=== PATIENT | female | born 1960 | race Caucasian/White ===

== ENCOUNTER 2019-02-19 04:11 | Inpatient (IN) | payer OTHER ==
[2019-02-19] VITALS (29 sets, daily range): BP systolic 116–180; BP diastolic 74–103
[~2019-02-19] VITALS: Ht 165.1 cm; Wt 69.2 kg
--- NOTE | ~2019-02-19 | EKG ---
[place] [address] ELECTROCARDIOGRAM REPORT Name: DARIAN REED Room: [address] ADM IN M.R.#: [id number] Admission: 02/19/19 Attend Phys: Zora Wiley MD Discharge: Date of : 56 Report #: [id number] THIS REPORT FOR: //name// 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
--- NOTE | ~2019-02-19 | OP ---
[address] [address] OPERATIVE REPORT Name: DARIAN REED Room: [address] IN M.R.#: [id number] Admission: 02/19/19 Attend Phys: Zora Wiley MD Discharge: Date of : 56 Report #: [id number] THIS REPORT FOR: //name// CC: [facility] physician/PCP Zora Wiley DATE OF SERVICE: 02/20/2019 PREOPERATIVE DIAGNOSES: Bowel obstruction and non-ST wave elevation myocardial infarction. POSTOPERATIVE DIAGNOSIS: Small-bowel obstruction secondary to internal hernia with closed loop obstruction and non-ST wave elevation myocardial infarction. PROCEDURE: Diagnostic laparoscopy converted to laparotomy with small bowel resection and reanastomosis, release of complete small-bowel obstruction and lysis of adhesions. SURGEON: Kenneth Mcelroy DO. EMERGENCY RESPONSE COORDINATOR: Vahe Henry. ANESTHESIA: General endotracheal. ESTIMATED BLOOD LOSS: Less than 30 mL. COMPLICATIONS: None. INDICATIONS FOR PROCEDURE: This is a 59-year-old female who presented to the Emergency Room with severe upper abdominal pain. Initially CT scan, which was performed was reported by an outside radiologist as a free air with small-bowel obstruction and perforation; however, the overread by our radiologist here at [facility] said that there was no free air. We did repeat a CT scan with oral contrast per the radiologist recommendation, which did show a questionable inflamed area in the right upper quadrant with a loop of bowel going up above the liver, but no free air. Also, at the time of her admission, she had a troponin drawn, which was just slightly elevated. However, her serial troponins continued to increase. On the day of admission, I did discuss with the manager media whether we should take the patient to surgery because I was concerned about her examination findings and CT; however, because of her elevated troponins, we elected to just place an NG tube and hold off on surgery; however, on the second day after admission, she continued to have abdominal pain and again after discussion with manager media, we elected to take the patient to the operating room for a laparoscopy, which via description [place] [address] OPERATIVE REPORT Name: DARIAN REED Room: [address] IN [facility]#: [id number] Admission: 02/19/19 Attend Phys: Zora Wiley MD Discharge: Date of : 56 Report #: [id number] DESCRIPTION OF PROCEDURE: After obtaining proper consents and discussing risks and complications with the patient and her family, she was taken to the operating room and laid on the supine position, administered general endotracheal anesthetic. She was then prepped and draped in the usual sterile fashion. She already had a Anderson catheter, placed for monitoring in the Intensive Care Unit. We then prepped and draped the patient in the usual sterile fashion. Preoperative antibiotics had been given. SCDs were in place. A timeout was performed. We then made a small supraumbilical skin incision with a #11 scalpel blade. This was carried down through the skin and the subcutaneous tissue using electrocautery for hemostasis. Once the fascia was encountered, it was incised along the midline, grasped and elevated with Froy clamps and divided further. The peritoneum was then bluntly opened using a hemostat. We then placed 2-0 Vicryl sutures in a [id number] fashion to secure the Alfreda trocar, which was then inserted and insufflation was begun. Once insufflation was complete, full visual inspection of the anterior abdominal organs was performed. This revealed some very dilated loops of bowel, especially in the upper right abdomen. There did appear to be some adhesions of the bowel above the liver on the right side. Inspection lower in the abdomen revealed still more dilated small bowel, but no signs of any obstruction in that area. Also during inspection, we did identify a loop of small bowel which appeared to be very ischemic, but there was no evidence of perforation. So because of this and we knew we would have to do a small bowel resection, I elected to stop the laparoscopy and convert to a laparotomy. We stopped the insufflation, all air was released. The trocar was removed. I then extended the supraumbilical incision upwards for a length of approximately 7 cm. I carried the incision down through the fascia and peritoneum and once within the peritoneum, I was able to explore the abdomen. We did identify an adhesion, which was going over top of the small bowel and attaching up to the liver, which was causing a complete small-bowel obstruction from a closed loop obstruction. I was able to take down this adhesion using Metzenbaum scissors and immediately upon doing that, I was able to bring the small bowel up into the wound. We then inspected the small bowel and although there was no perforation, it was very obvious that the bowel was ischemic and would not recover. We then ran the entire small bowel, found no other abnormalities. We then inspected the area of concern and this was all in the ileum and went to approximately 10 cm from the ileocecal valve. I then performed a small bowel resection opening an avascular window proximal and distal to the area of ischemia. LINDA-80 was fired across the proximal and distal ends and then we used a LigaSure Impact device to sequentially clamp and divide the mesentery. I then performed reanastomosis by opening an enterotomy on both proximal and distal ends. We then placed a LINDA-80 into the bowel and fired it. A TA 60 was then used to close the enterotomy. I then closed the mesentery using a running 2-0 Vicryl suture. We also placed two crotch sutures using 2-0 Vicryl suture. We were then able to replace the bowel back into the abdominal cavity. We copiously irrigated. I assured that there was some omentum going over top of the small bowel to prevent it from going up over the liver again. I then closed the peritoneum and fascia using a running 0 [place] [address] OPERATIVE REPORT Name: DARIAN REED Room: [address] IN [facility].#: [id number] Admission: 02/19/19 Attend Phys: Zora Wiley MD Discharge: Date of : 56 Report #: [id number] PDS suture going from the top down to the middle of the incision and then from the bottom to the top of the incision, so two separate sutures were used. We then closed the subcutaneous tissue using 3-0 Vicryl suture. The skin was closed using romario. The wound was injected with 0.5% Marcaine without epinephrine. The patient was then awakened in the operating room and transported back to the Intensive Care Unit in stable, but guarded condition. Sponge, needle and instrument counts were all correct at the end of the procedure. By: 1522 [id number] Mcelroy DO /nt
[~2019-02-19 04:11] MED LIST: ABILIFY10 MG PO; ALPRAZOLAM PO; AMBIEN 10 MG TA10 MG PO; BUTALB-APAP-CA1 EACH PO; HTN MED; HYDROCODON-ACE1 EAC7 PO; LISINOPRIL10 MG PO; NAPROXEN 500MG500 MG PO; NORCO 10-325 T1 EACH PO; OXYCODONE HCL30 MG PO; SIMVASTATIN40 MG PO; XANAX1 MG PO
[2019-02-19] MEDS ORDERED: NORCO 10-325 T1 EACH PO (04:20)
[2019-02-19] MEDS ORDERED: SIMVASTATIN40 MG PO (04:21)
[2019-02-19] MEDS ORDERED: OXYCODONE HCL10 MG PO (04:21)
[2019-02-19 04:45] LABS: URINE BILIRUBIN NEGATIVE (Negative); URINE BLOOD NEGATIVE (Negative); URINE CLARITY CLEAR; URINE COLOR YELLOW; URINE GLUCOSE-RANDOM NEGATIVE (Negative); URINE KETONES NEGATIVE (Negative); URINE LEUKOCYTES-REFLEX NEGATIVE (Negative); URINE NITRITE-REFLEX NEGATIVE (Negative); URINE PROTEIN 3+ (Negative); URINE UROBILINOGEN 0.2 E.U./dl (0.2-1.0)
[2019-02-19 04:47] LABS: HEMATOCRIT 44.7 % (37.0-47.0); HEMOGLOBIN 15.3 gm/dL (12.0-15.0); MCHC 34.2 g/dL (28.0-37.0); MCV 93.4 fL (80.0-100.0); MPV 8.4 fl. (7.2-11.1); NUCLEATED RBCS 0 /100WBC; PLATELET COUNT* 324 thou/uL (150-400); RBC 4.79 mil/uL (4.20-5.00); RDW-CV 13.2 % (10.5-14.5); WBC 12.9 thou/uL (4.0-11.0)
[2019-02-19 04:51] LABS: CALCIUM 10.1 mg/dL (8.5-10.1); CREATININE 1.3 mg/dL (0.6-1.3); POTASSIUM 4.1 mmol/L (3.5-5.1)
[2019-02-19 05:03] LABS: ALBUMIN 3.9 g/dL (3.4-5.0); TOTAL BILIRUBIN 0.3 mg/dL (<0.1-1.0); TOTAL PROTEIN 8.2 g/dL (6.4-8.2); TROPONIN-I LEVEL 0.5 ng/mL (<0.06)
[2019-02-19 05:47] LABS: ABSOLUTE LYMPHOCYTES 1.5 thou/uL (0.8-5.3); ABSOLUTE MONOCYTES 0.5 thou/uL (0.0-1.2); ABSOLUTE NEUTROPHILS 10.8 thou/uL (1.6-8.1); ATYPICAL LYMPHS 1 %
[2019-02-19 05:48] LABS: CLUMPED PLTS OCCASIONAL; LARGE PLATELETS RARE; PLATELET ESTIMATE ADEQUATE
[2019-02-19 05:53] LABS: BACTERIA-REFLEX 1-9 Few /HPF (None Seen); CASTS None Seen /LPF (None Seen); SQUAMOUS 0-3 Few /LPF (0-3); URINE RBC None Seen /HPF (0-2); URINE WBC-REFLEX 6-15 Few /HPF (0-5)
[2019-02-19 05:54] LABS: CRYSTALS None Seen /LPF (None Seen)
[2019-02-19 09:30] LABS: AMP/METHAMP Negative (Negative); BARBITURATES POSITIVE (Negative); BENZODIAZEPINES POSITIVE (Negative); COCAINE Negative (Negative); METHADONE Negative (Negative); OPIATES POSITIVE (Negative); PCP Negative (Negative); THC POSITIVE (Negative)
--- NOTE | 2019-02-19 09:30 | NUR ---
DR. ZAMORA CONSULTING WITH THE PATIENT AT THIS TIME.
--- NOTE | 2019-02-19 09:48 | NUR ---
DR. GARAY CONSULTING WITH PATIENT AT THIS TIME
--- NOTE | 2019-02-19 12:18 | CON ---
[address] [address] CONSULTATION Name: DARIAN REED Room: [address] IN .R.#: [id number] Admission: 02/19/19 Attend Phys: Zora Wiley MD Discharge: Date of : 56 Report #: [id number] THIS REPORT FOR: //name// CC: [facility] physician/PCP Zora Wiley DATE OF SERVICE: 02/19/2019 CARDIOLOGY CONSULTATION Patient of Dr. Wiley, seen and dictated by Dr. Martinez on 02/19/2019. HISTORY OF PRESENT ILLNESS: The patient is a 59-year-old female who developed lower abdominal discomfort yesterday afternoon at approximately 3:00 and has continued to have that discomfort since that time. She developed nausea and vomiting with subsequent dry heaves. She denied chest, neck, jaw or arm discomfort or dyspnea. Of note, troponin in the ER was initially 0.5 and subsequently 1.58. EKGs revealed no acute ischemic changes. She does have a number of risk factors for coronary artery disease including hypertension, positive family history of premature coronary artery disease in multiple first-degree relatives, tobacco abuse and hyperlipidemia. SOCIAL HISTORY: She is a significant cigarette smoker. She functions independently. PAST MEDICAL HISTORY: Remarkable for the aforementioned risk factors of prior back surgery, appendectomy, and tubal ligation. FAMILY HISTORY: Remarkable for brother and father having premature coronary artery disease. REVIEW OF SYSTEMS: Remarkable for the aforementioned abdominal discomfort and a history of seizures. PHYSICAL EXAMINATION: GENERAL: Reveals a mildly distressed middle-aged female. VITAL SIGNS: Blood pressure 140/70, pulse rate 74, respirations 18 per minute. NECK: Jugular venous pressure is normal. CHEST: Clear. CARDIAC: Reveals normal first and second heart sounds with a soft systolic murmur without rubs or gallops. ABDOMEN: Mildly tender in the lower abdomen without rebound[place] [address] CONSULTATION Name: DARIAN REED Room: [address]#: [id number] Admission: 02/19/19 Attend Phys: Zora Wiley MD Discharge: Date of : 56 Report #: [id number] present and normal. EXTREMITIES: Without edema with intact peripheral pulses. LABORATORY DATA: Troponins are as noted at 0.5 and 1.58. BUN 21, creatinine 1.3. Hemoglobin 15.3, white blood cells count 12,900 with 224,000 platelets. IMPRESSION: 1. Lower abdominal pain of uncertain etiology. 2. Probable non-ST segment elevation myocardial infarction with sequential increases in troponin Is without localizing electrocardiographic changes. 3. Hypertension. 4. Hyperlipidemia. 5. Positive family history of premature coronary artery disease. 6. Tobacco habituation. RECOMMENDATIONS: 1. Clarification of the etiology for the persistent lower abdominal discomfort. 2. If there is nothing to suggest an acute abdomen, I would consider heparinization and aspirin. 3. We would plan catheterization after resolution of the issue regarding lower abdominal pain. This has been discussed with the patient and family and hospitalist as well as Dr. Corona. Critical care time is 35 minutes from 9:05 to 9:40 on 02/19/2019. <ELECTRONICALLY SIGNED> By: Rishabh Martinez MD, [facility] 02/19/19 1218 0940 [id number] Martinez MD, FACC /nt
[2019-02-19 15:02] LABS: INR 1.1; PROTIME 10.8 Seconds (9.20-11.50)
[2019-02-19 15:32] LABS: APTT 198.4 Seconds (25.0-31.3)
--- NOTE | 2019-02-19 18:00 | NUR ---
PT RECEIVED FROM ER AT 1045, COMPLAINING OF CONSTANT ABDOMINAL PAIN, PAIN MGMT PER EMAR. ADMISSION PROCESS COMPLETED. HEPARIN DRIP STARTED, APTT MONITORED PER PROTOCOL. NG INSERTED BY SURERY AND IN LIS. NO ANY PLANS PROCEDURES YET. 2ND IV INSERTED IN LEFT HAND. FAMILY AT THE BEDSIDE.
--- NOTE | 2019-02-19 18:08 | NUR ---
PATIENT PROGRESSING TOWARDS GOALS. TRANSFERRED TO ICU THIS AFTERNOON FOR HYPOTENSION. NOW ON PRESSORS TO SUPPORT BLOOD PRESSURE.HAD 8500 ML REMOVED FROM ABDOMEN THIS AM VIA PARACENTESIS. HAVE BEEN UNABLE TO NOTIFY THE DPOA FOR PATIENT THAT HE IS NOW IN ICU. WAS FEBRILE EARLIER TODAY. APPETITE GOOD. PT WANTS TO GO HOME!
--- NOTE | 2019-02-19 20:31 | NUR ---
HR SUBSTAINING HIGH 130'S TO LOW 140'S CARIAC MONITOR, DENIES CP, EKG OBTAINED TO VERIFY RAPID RHYTHEM, EKG READING SINUS TACHYCARDIA WITH IRREGULAR RATE, MINIMAL ST DEPRESSION, ANTEROLATERAL LEADS, PROTOLONGED QT INTERVAL, B/P STABLE, ATIVAN GIVEN FOR RELAXATION WITHOUT CHANGE IN HR, SPOKE WITH DR DAVIDSON VIA PHONE, NEW ORDERS RECEIVED FOR METOPROLOL 5MG IVP [id number] SCHEDULED AND CARDIZEM GTT IV TIRATE TO KEEP HR =<100. WILL COMMUNICATE NEW ORDERS WITH PT AND INITATE ORDERED. WILL CONTINUE TO MONITOR.
--- NOTE | 2019-02-19 21:50 | NUR ---
DR ZAMORA HERE TO EVALUATE PT AT BEDSIDE, NEW ORDERS RECEIVED TO CONTINUE METOPROLOL 5MG IVP ORDERED AND TO DC CARDIZEM GTT, CARDIZEM GTT STARTED WHILE DR ZAMORA IN PT ROOM, CARDIZEM GTT IMMEDIALEY STOPPED PER ORDER, DR ZAMORA COMMUNICATED NEW ORDERS WITH PT, WILL CONTINUE TO MONITOR.
[2019-02-20] VITALS (67 sets, daily range): BP systolic 99–133; BP diastolic 53–88
[2019-02-20 02:05] LABS: GLYCOHEMOGLOBIN (HGB A1C) 5.8 % (4.8-5.6)
[2019-02-20 03:42] LABS: ABSOLUTE LYMPHOCYTES 1.3 thou/uL (0.8-5.3); ABSOLUTE MONOCYTES 1.3 thou/uL (0.0-1.2); ABSOLUTE NEUTROPHILS 14.3 thou/uL (1.6-8.1); BASOPHILS 0.1 %; HEMATOCRIT 37.5 % (37.0-47.0); LYMPHOCYTES 7.5 %; MCH 32.2 pg (26.0-34.0); MCHC 34.7 g/dL (28.0-37.0); MONOCYTES 7.7 %; MPV 8.5 fl. (7.2-11.1); NUCLEATED RBCS 0 /100WBC; POLYS 84.7 %; RBC 4.04 mil/uL (4.20-5.00); RDW-CV 13.5 % (10.5-14.5); WBC 16.9 thou/uL (4.0-11.0)
[2019-02-20 03:45] LABS: PLATELET COUNT* 193 thou/uL (150-400)
[2019-02-20 04:32] LABS: ALBUMIN 2.6 g/dL (3.4-5.0); ALKALINE PHOSPHATASE 82 U/L (46-116); ANION GAP 9 mmol/L (7-16); BUN 19 mg/dL (7-18); CALCIUM 8.7 mg/dL (8.5-10.1); CHLORIDE 104 mmol/L (98-107); CHOLESTEROL 149 mg/dL (<200); CO2 24 mmol/L (21-32); GLUCOSE 171 mg/dL (70-99); HDL CHOLESTEROL 69 mg/dL (>40); LDL CHOLESTEROL 73 mg/dL (<100); POTASSIUM 3.6 mmol/L (3.5-5.1); SGOT 25 U/L (15-37); SGPT 32 U/L (30-65); SODIUM 137 mmol/L (136-145); TC:HDL 2.2 Ratio (Not establshd); TOTAL BILIRUBIN 0.5 mg/dL (<0.1-1.0); TRIGLYCERIDE 37 mg/dL (<150); VLDL 7 mg/dL (<40)
[2019-02-20 04:34] LABS: SERUM ASSESSMENT Clear
--- NOTE | 2019-02-20 06:30 | NUR ---
PT PULLING OFF SAO2 PROBE, ATTEMPTING TO GET OOB WTIHOUT ASSIST AND PULLING AT IV LINES, PT STATES SHE WAS UNAWARE OF PLACE, TIME, AND SITUTATION, LIGHT TURNED ON IN ROOM TO ASSIST WITH VISUALIZATION OF PLACE, REORIENTED TO PLACE, TIME, AND SITUATION VERBALLY, PT VERBALIZED UNDERSTANDING BUT APPEARS TO BE LOOKING AROUND ROOM IF CONFUSED, STATES DOESNT UNDERSTAND WHY SHE IS HERE AND WHAT IS GOING ON, EMOTIONAL SUPPORT PROVIDED, DENIES NAUSEA, NG PATENT TO BROWN BILE LIS. BED ALARM ON FOR SAFETY, WILL CONTINUE TO MONITOR AND KEEP SAFE.
--- NOTE | 2019-02-20 07:00 | NUR ---
SLOW PROGRESSION TOWARDS GOALS, REQUESTING PAIN MEDICATION FOR GENRALIZED ABD PAIN WHEN AWAKE, RESTING QUIETLY WITH EYES CLOSED OFF AND ON DURING NOC, TACHYPENIC RESP UP TO LOW 40'S BPM, SAO2 REMAINS =>95% ON 2L PER NC, DENIES SOA OR DIFFICULTY BREATHING, METOPROLOL 5MG IVP HELPFUL FOR HR CONTROL, HR RANING FROM 80'S TO 120'S SR/ST PAC'S, AFEBRILE, DENIES NAUSEA, TOELRATING ICE CHIPS SPARINGLY, REMAINS ON HEPARIN GTT IV, TITRATING PER ORDER, NO S/S ACTIVE BLEEDING NOTED, NEXT APTT SCHEDULED AT 0730 THIS AM, INTERMITTENT FORGETFULNESS AND CONFUSTION, EASILY REDIRECTABLE AND ORIENTED TO PLACE, TIME, AND SITUATION. BED ALARM ON FOR SAFETY. CALL LIGHT IN REACH.
--- NOTE | 2019-02-20 15:32 | NUR ---
PT TO OR AT 1400. VSS.
--- NOTE | 2019-02-20 18:26 | NUR ---
PT RECEIVED FROM OR AT 1520 AFTER SMALL BOWEL RESECTION, VSS. PT CONFUSED WHEN AWAKE, REORIENTATION GIVEN. HEPARIN HOLD TILL NEXT ORDER. NS AT 100 MLS/HR. PAIN MGMT PER EMAR. NPO STATUS. NG CONTD AT LIS. WOUND DSG LOOKS CLEAN, DRY AND INTACT.
[2019-02-21] VITALS (38 sets, daily range): BP systolic 95–140; BP diastolic 56–82
--- NOTE | 2019-02-21 02:02 | NUR ---
PT CONTINUES WITH INTERMITTENT CONFUSION ESPECIALLY TO PLACE, REQUESTED TO CALL AND LEAVE FACILITY, ATTEMPTED TO REORIENT WITHOUT SUCCESS, ASSISTED PT TO CALL SPOUSE, UPDATED SPOUSE PTS CURRENT CONDITON INCLUDING CONFUSION, ATIVAN 1MG IVP GIVEN FOR INCREASED ANXIETY, PTS STATES WILL BE HERE IN AM, ABLE TO CONVINCE PT TO CONTIUE WITH POC, MORPHINE GIVEN FOR C/O ABD PAIN, EDUCATED AND ENCOURAGED SPLINTING ABDOMEN WITH COUGHING AND CARES, ASSITED TO REPOSITON FOR COMFORT AND PROMOTE SKIN INTEGRITY, PT STATES UPSET BECAUSE UNABLE TO BE PROVIDED WITH PO INTAKE, EDUCATED NPO ORDER AND RATIONAL S/P ABD SURGERY TO REMAIN NPO, FREQUENT SWABS PROVIDED, PT STATES SWABS ARE NOT GOOD AND WANTS TO LEAVE BECAUSE "NO ONE WILL GIVE ME ANYTHNG TO DRINK AND IM TIRED OF THIS HOME", EMOTIONAL SUPPORT PROVIDED, ATIVAN APPEARS TO BE HELPFUL AT THIS TIME, REMAINS AWAKE AND CONFUSED, WITH DECREASED ANXIETY/AGITATION, 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 WILL CONTINUE TO MONITOR AND PROVIDE SUPPORT.
[2019-02-21 04:31] LABS: ABSOLUTE MONOCYTES 0.6 thou/uL (0.0-1.2); ABSOLUTE NEUTROPHILS 7.2 thou/uL (1.6-8.1); EOSINOPHILS 0.1 %; HEMATOCRIT 32.1 % (37.0-47.0); HEMOGLOBIN 11.1 gm/dL (12.0-15.0); LYMPHOCYTES 11.5 %; MCH 32.8 pg (26.0-34.0); MCHC 34.7 g/dL (28.0-37.0); MCV 94.5 fL (80.0-100.0); MONOCYTES 7.1 %; MPV 8.7 fl. (7.2-11.1); NUCLEATED RBCS 0 /100WBC; PLATELET COUNT* 167 thou/uL (150-400); POLYS 81.3 %; RDW-CV 13.4 % (10.5-14.5); WBC 8.9 thou/uL (4.0-11.0)
[2019-02-21 04:55] LABS: ALBUMIN 2.1 g/dL (3.4-5.0); CALCIUM 8.1 mg/dL (8.5-10.1); CREATININE 0.8 mg/dL (0.6-1.3); MAGNESIUM 2.1 mg/dL (1.8-2.4); POTASSIUM 3.4 mmol/L (3.5-5.1); TOTAL BILIRUBIN 0.4 mg/dL (<0.1-1.0); TOTAL PROTEIN 5.6 g/dL (6.4-8.2); TROPONIN-I LEVEL 0.27 ng/mL (<0.06)
--- NOTE | 2019-02-21 06:00 | NUR ---
PT SLOW PROGRESSION TOWARDS GOALS, AWAKE MOST OF NOC, INTERMITTENT CONFUSION AND FORGETFULLNESS, STATES "GOING TO A HOSPTITAL TODAY" INQUIRED WHY SHE WAS WANTING TO LEAVE AND SHE SAID BECAUSE "THEY WONT GIVE ME A REAL BED, THERES NO DOCTORS HERE OR ANY MEDICAL ANYTHING JADYN EVER SEEN" ATTEMPTED TO REORIENT TO PLACE WITH MUCH DIFFICULTY, RESTLESS AND AGITATED AT TIMES, ATIVAN 1MG IVP GIVEN PRN WITH SOME EFFECTIVENESS, ATIVAN DECREASED AGIATION BUT DID NOT DECREASE ANXIETY. 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 EDUCATED AND ENCOURAGED USE OF CALL LIGHT, CALL LIGHT REMAINS IN REACH.
--- NOTE | 2019-02-21 06:48 | NUR ---
PT C/O GENEALIZED ABD PAIN 02/09, MORHPHINE 4MG IVP GIVEN WITH MINIMAL EFFECT, AWAKE, CONFUSED, RESTLESS, AND ANXIOUS MOST OF NOC, REQUESTING FURTHER PAIN MEDICATION, UCALL PAGE SENT TO DR MAYORGA, UPDATED ON CONTINUE C/O ABD PAIN, SMALL BOWEL RESECTION ON 02/20/19, OXY IR 20MG PO TID HOME MEDICATION, PT CONTINUED C/O PAIN WITH CONFUSION, ANXIETY, AND RESTLESSNESS, NEW ORDER RECEIVED DILAUDID 2MG IVP [id number] PRN, PT UPDATED NEW ORDER AND FIRST DOSE DILAUDID 2MG IVP GIVEN. SAO2 REMAINS STABLE 98% ON 2L PER NC, ASSISTED POSITON FOR COMFORT, FAN ON PER PT REQUEST, BED ALARM ON FOR SAFETY, CALL LIGHT REMAINS IN REACH.
--- NOTE | 2019-02-21 09:57 | NUR ---
Patient sleepimng this am. Preparing to get out of bed. Incision dry and intact. family at bedside.
--- NOTE | 2019-02-21 10:30 | NUR ---
CHART REVIEWED, SPOKE WITH PT. PT LIVES AT HOME WITH HER , HAS BEEN ACTIVE AND INDEP. DISCUSSED ROLE OF CARE MGT. PT DENIES ANY DISCHARGE NEEDS AT THIS TIME. CASE MGT WILL CONTINUE TO FOLLOW.
--- NOTE | 2019-02-21 12:24 | EKG ---
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[place] : 1960 Requested By: Christopher Díaz Order Number: [id number] Gali MD: Erik Al Measurements Intervals [place] Rate: 87 P: MT: QRS: -9 QRSD: 108 T: 50 QT: 443 QTc: 533 Interpretive Statements sinus rhythm Nonspecific T abnrm, anterolateral leads Prolonged QT interval Artifact in lead(s) I,II,aVL,aVF,V1,V3,V5,V6 Compared to ECG 08/09/2012 17:05:18 Prolonged QT interval now present Electronically Signed On 02-21-2019 12:24:00 CDT by Erik Al [email or web address] <ELECTRONICALLY SIGNED> By: Erik Al MD, FAC 02/21/19 1224 0423 0423 Erik Al MD, FAC /EPI
--- NOTE | 2019-02-21 12:25 | EKG ---
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
--- NOTE | 2019-02-21 12:34 | EKG ---
[place] [address] ELECTROCARDIOGRAM REPORT Name: BRIANNADARIANPedrito HILL Room: [address] ADM IN M.R.#: [id number] Admission: 02/19/19 Attend Phys: Zora Wiley MD Discharge: Date of : 56 Report #: [id number] THIS REPORT FOR: //name// [facility] Test Date: 2019-02-19 Test Time: 19:57:12 Pat Name: DARIAN REED Department: Room: [facility] Gender: F Manager Medical: DONG : 1960 Requested By: Debby Li Order Number: [id number] MD: Erik Al Measurements Intervals [place] Rate: 138 P: -24 [place]: 111 QRS: 18 QRSD: 83 T: 71 QT: 344 QTc: 522 Interpretive Statements Sinus tachycardia with irregular rate Borderline low voltage, extremity leads Minimal ST depression, anterolateral leads Prolonged QT interval Baseline wander in lead(s) V3 Electronically Signed On 02-21-2019 12:34:44 CDT by Erik Al [email or web address] <ELECTRONICALLY SIGNED> By: Erik Al MD, FACC 02/21/19 1234 56 56 Erik Al MD, [facility] /EPI
--- NOTE | 2019-02-21 13:11 | 2DMMODE ---
[place] [address] 2 D/M-MODE ECHOCARDIOGRAM Name: BRIANNADARIANPedrito HILL Room: [address] IN [facility]#: [id number] Admission: 02/19/19 Attend Phys: Zora Wiley, Discharge: Date of : 56 Date of Service: 02/21/19 1311 Report #: [id number] THIS REPORT FOR: //name// APPROVED REPORT Study performed: 02/21/2019 10:52:14 EXAM: Comprehensive 2D, Doppler, and color-flow Echocardiogram Patient Location: In-Patient Room #: [facility] [place] Status: routine BSA: 1.71 HR: 94 bpm BP: 112/73 mmHg Rhythm: NSR Other Information Study Quality: Good Indications Acute ID 2D Dimensions IVSd: 10.00 (7-11mm) LVOT Diam: 18.99 (18-24mm) LVDd: 44.78 mm PWd: 10.41 (7-11mm) Ascending Ao: 24.97 (22-36mm) LVDs: 27.86 (25-40mm) Aortic Root: 27.88 mm Volumes Left Atrial Volume (Systole) LA ESV Index: 30.20 mL/m2 Aortic Valve AoV Peak Christopher.: 1.50 m/s AO Peak Gr.: 8.97 mmHg LVOT Max P.28 mmHg AO Mean Gr.: 4.59 mmHg LVOT Mean P.38 mmHg LVOT Max V: 1.15 m/s AO V2 VTI: 25.40 cm LVOT Mean V: 0.71 m/s LIZETT (VTI): 2.27 cm2 LVOT V1 VTI: 20.40 cm Mitral Valve E/A Ratio: 0.81 MV Decel. Time: 138.82 ms MV E Max Christopher.: 0.91 m/[place] [address] 2 D/M-MODE ECHOCARDIOGRAM Name: DARIAN REED Room: [address] IN .R.#: [id number] Admission: 02/19/19 Attend Phys: Zora Wiley, Discharge: Date of : 56 Date of Service: 02/21/19 1311 Report #: [id number] PHT: 40.26 ms MVA (PHT): 5.46 cm2 TDI E/Lateral E': 7.58 E/Medial E': 7.58 Medial E' Christopher.: 0.12 m/s Lateral E' Christopher.: 0.12 m/s Pulmonary Valve PV Peak Christopher.: 0.89 m/s PV Peak Gr.: 3.14 mmHg Tricuspid Valve RAP Estimate: 5.00 mmHg TR Peak Gr.: 29.10 mmHg RVSP: 34.00 mmHg PA Pressure: 34.00 mmHg Left Ventricle The left ventricle is normal size. There is normal LV segmental wall motion. There is normal left ventricular wall thickness. Left ventricular systolic function is normal. The left ventricular ejection fraction is within the normal range. LVEF is 55-60%. Grade I - abnormal relaxation pattern. Right Ventricle The right ventricle is normal size. The right ventricular systolic function is normal. Atria Left atrium is mildly dilated. The right atrium size is normal. Aortic Valve Mild aortic valve sclerosis. No aortic regurgitation is present. There is no aortic valvular stenosis. Mitral Valve The mitral valve is normal in structure. Mild mitral regurgitation. No evidence of mitral valve stenosis. Tricuspid Valve The tricuspid valve is normal in structure. Mild tricuspid regurgitation. estimated pa pressure 45 mm Hg Pulmonic Valve The pulmonary valve is normal in structure. There is no pulmonic valvular [place] [address] 2 D/M-MODE ECHOCARDIOGRAM Name: DARIAN REED Room: [address] IN [facility]#: [id number] Admission: 02/19/19 Attend Phys: Zora Wiley, Discharge: Date of : 56 Date of Service: 02/21/19 1311 Report #: [id number] Great Vessels The aortic root is normal in size. IVC is not well visualized. Pericardium There is no pericardial effusion. <Conclusion> LVEF is 55-60%. Mild mitral regurgitation. Mild tricuspid regurgitation. estimated pa pressure 45 mm Hg <ELECTRONICALLY SIGNED> By: Erik Al MD, [facility] 02/21/191310 10 10 Erik Al MD, FACC /INF
--- NOTE | 2019-02-21 15:45 | NUR ---
SW provide DPOA/Advanced Directive paperwork and information to pt and pt family member/visitor in room. Pt was not ready to complete at this time but was thankful for the information.
--- NOTE | 2019-02-21 16:00 | NUR ---
PATIENT UP IN CHAIR TOLERATING WELL. NG INTACT BILE COLOR DRAINAGE FROM NG TUBE. INCISION REMAINS INTACT.
--- NOTE | 2019-02-21 17:44 | NUR ---
PATIENT TRANSFERED TO RM 218. APPEARS COMFORTABLE UP IN FOR TRANSFER. REPORT GIVEN TO TERI KRAUS.
[2019-02-22] VITALS (23 sets, daily range): BP systolic 120–151; BP diastolic 68–94
--- NOTE | 2019-02-22 03:34 | NUR ---
PT ALERT ORIENTED. MIDLINE ABD DRSG D/I. NG TO LIS DRAINING BROWN. O2 AT 2 LITERS NC. PT AGITATED AND ANXIOUS. HANDS TREMULOUS. ATIVAN GIVEN TWICE. PT MUCH MORE RELAXED WITH ATIVAN. HYDROMORPHONE GIVEN TWICE FOR ABD PAIN. PT RESTING QUIETLY THROUGH MOST OF THE SHIFT. TELEMETRY SHOWS SR.
[2019-02-22 05:25] LABS: CALCIUM 8.3 mg/dL (8.5-10.1); CREATININE 0.8 mg/dL (0.6-1.3); PHOSPHORUS* 2.2 mg/dL (2.5-4.9); POTASSIUM 3.8 mmol/L (3.5-5.1)
[2019-02-22 05:26] LABS: ABSOLUTE LYMPHOCYTES 0.9 thou/uL (0.8-5.3); ABSOLUTE MONOCYTES 0.7 thou/uL (0.0-1.2); ABSOLUTE NEUTROPHILS 4.8 thou/uL (1.6-8.1); BASOPHILS 0.2 %; EOSINOPHILS 0.1 %; HEMATOCRIT 30.3 % (37.0-47.0); HEMOGLOBIN 10.3 gm/dL (12.0-15.0); LYMPHOCYTES 14.7 %; MCH 32.2 pg (26.0-34.0); MCHC 33.8 g/dL (28.0-37.0); MCV 95.3 fL (80.0-100.0); MONOCYTES 10.1 %; NUCLEATED RBCS 0 /100WBC; PLATELET COUNT* 166 thou/uL (150-400); POLYS 74.9 %; RBC 3.18 mil/uL (4.20-5.00); RDW-CV 13.5 % (10.5-14.5); WBC 6.4 thou/uL (4.0-11.0)
--- NOTE | 2019-02-22 08:16 | NUR ---
Rapid response called, Pt transferring to ICU bed 6
--- NOTE | 2019-02-22 08:45 | NUR ---
RECEIVED PT CARE 0700. SHE IS AWAKE/ALERT, ANXIOUS, AND ORIENTED X4. UNABLE TO OBTAIN O2 SAT >60%. PLACED PATIENT ON NON REBREATHER AND O2 SATS INCREASED INTO 80'S. WELL PULLER HEAD ALARMING SVT. EKG COMPLETED. CARDIOLOGY NOTIFIED. DR TOLEDO AND DR KRAUSE ON THE FLOOR TO SEE THE PATIENT. QUICK COMBO PADS PLACED AND ADENOSINE GIVEN PER DR TOLEDO. HEART RATE REMAINED 160'S. AN ADDITIONAL 5MG IV METOPROLOL GIVEN WITH A SUCCESSFUL DECREASE IN HEART RATE INTO THE 90'S. AMIO BOLUS AND GTT ORDERED PER DR TOLEDO. AMIO BOLUS GIVEN PRIOR TO PATIENT TRANSPORTING TO CT SCAN. AMIO GTT STARTED IN ROUTE PER NURSING HOSPITALITY JOB TITLES. RESPIRATORY ASSISTING WITH TRANSPORT DUE TO PATIENT BEING PLACED ON BIPAP DURING HER DECOMPENSATING EVENT. SURGERY NOTIFIED ABOUT PATIENTS CHANGE IN STATUS. PATIENTS UPDATED AND AWARE OF PATIENTS CHANGE IN STATUS AND TRANSFER TO ICU 6. BLOOD PRESSURE REMAINED STABLE THROUGHOUT THIS EVENT. REPORT CALLED TO QUALITY CONTROL CHEMIST. HOUSE SUP AND NURSING COGENERATION TECHNICIAN ASSISTING IN TRANSPORT TO CT SCAN AND ICU 6. ALL PATIENTS BELONGINGS PACKED AND SENT WITH THE PATIENT. NO QUESTIONS/CONCERNS AT TIME OF TRANSFER.
--- NOTE | 2019-02-22 09:28 | NUR ---
PATIENT TRANSFERED TO ICU BED 6 WITH SALARY AND WAGE ADMINISTRATOR AFTER GOING TO CTA, PENDING CTA RESULTS. CENTRAL LINE INSERTION AT BEDSIDE WITH SURGERY. TOLERATED WELL. AMIODARONE STARTED, PATIENT REMAINS SINUS TACHY AND TACHYPNIC. WILL CONFIRM PLACEMENT WITH CXR, PATIENT REPORTS PAIN, WILL ADDRESS POST CENTRAL LINE CONFIRMATION.
[2019-02-22 12:31] LABS: PCO2 29.7 mmHg (35.0-45.0)
[2019-02-22 12:34] LABS: PO2 154.6 mmHg (75.0-100.0)
--- NOTE | 2019-02-22 15:07 | PATH ---
[address] [address] PATHOLOGY RPT PROCEDURE Name: BRIANNADARIANPedrito HILL Room: [address] IN .R.#: [id number] Admission: 02/19/19 Date of : 56 Discharge: Report #: [id number] Path Case #: [id number] [facility] Accession Number: [id number] . 01 Material submitted: . small bowel - SMALL BOWEL ILEUM . 01 Clinical history: . Bowel obstruction . 02 Diagnosis: Small bowel ileum: - Segment of benign small intestine with mucosal necrosis and transmural acute inflammation and fresh hemorrhage, with viable surgical margins, negative for granulomas, viral inclusions and dysplasia. - Two benign and congested mesenteric lymph nodes. (DEEJAY:cecily; 02/22/2019) QMS/02/22/2019 . 02 Electronically signed: . Milton Rutledge MD, Pathologist NPI- [id number] . 01 Gross description: . The specimen is received in formalin, labeled "Darian Reed, small bowel ileum", is a 30.5 cm unoriented, dilated, hemorrhagic and focally necrotic segment of small bowel with up to 3.0 cm diameter and with abundant amount of predominantly hemorrhagic mesenteric fat measuring up to 3.0 cm. Both the margins are closed by staple line. One margin appears viable (A1) and the opposite possible hemorrhagic and necrotic (A2). The serosa is lara-brown dusky, hemorrhagic and covered with a focal area of possible fibropurulent exudate. The mucosa is hemorrhagic and focally covered by a possible leroy-white exudate that possibly extends to margin submitted in block A2. There is approximately 4.0 cm of bowel mucosa from margin A1 that appears viable. The changes in the wall is transmural that extends to the adjacent mesenteric fat. The wall is up to 0.1 cm in average thickness. No discrete nodules or polyp are identified. Cross section of the mesenteric vessels reveals dark brown possible blood clots. There is no perforation and no discrete lymph nodes are identified. . Representatively submitted as follows: A1. Margin. A2. Opposite margin. A3. Mesenteric margin. A4. Bowel wall to underlying mesentery. A5. Bowel wall. A6. Mesenteric vessels. (SWS; 02/21/2019) [place] [id number] PATHOLOGY RPT PROCEDURE Name: DARIAN REED Room: [address] IN [facility].#: [id number] Admission: 02/19/19 Date of : 56 Discharge: Report #: [id number] Path Case #: [id number] SHS/SHS . 02 Pathologist provided ICD-10: K55.069, K52.9 . 02 CPT . 900178 Specimen Comment: A courtesy copy of this report has been sent to Specimen Comment: [phone], . Specimen Comment: Report sent to / DR MAYORGA Performed at: 01 [facility] [address], [place], [place] [id number] MD Maurice Mckeon MD Phone: [phone] Performed at: [address] [facility] [address] [place] [id number] MD Milton Rutledge MD Phone: [phone]
--- NOTE | 2019-02-22 16:16 | EKG ---
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 : 1960 Requested By: Lex Bush Order Number: [id number] Reading MD: Erik Al Measurements Intervals [place] Rate: 161 P: -1 VT: 81 QRS: -24 QRSD: 84 T: 87 QT: 297 QTc: 486 Interpretive Statements Supraventricular tachycardia Borderline left axis deviation Low voltage, extremity leads ST depression, probably rate related Compared to ECG 02/19/2019 19:57:12 no change Electronically Signed On 02-22-2019 16:15:55 CDT by Erik Al [email or web address] <ELECTRONICALLY SIGNED> By: Erik Al MD, [facility] 02/22/19 1615 0737 0737 Erik Al MD, [facility] /EPI
--- NOTE | 2019-02-22 16:39 | NUR ---
PATIENT PROGRESSING WELL TOWARDS GOALS. NO NAUSEA/VOMITTING OR SHORTNESS OF AIR. DOES REPORT PAIN BUT IS OK WITH WAITING A LITTLE LONGER FOR MEDICATIONS FOR PAIN AND ANXIETY. WEANED DOWN TO 8 LITERS HIGH FLOW NASAL CANULA. GOALS TO KEEP SAT ABOVE 92% PER DR WATTS. REMAINS IN SINUS RHTYHM ON AMIODARONE GTT. VITALS REMAIN STABLE. ICE CHIPS GIVEN SPARINGLY PER SURGERY. PT/OT ORDERS RESUMED FOR TOMORROW. NG TO LIS AT THIS TIME. DIURESED AND TOLERATED WELL THIS SHIFT. BED IN LOWEST POSITION, CALL LIGHT IN REACH, SPECIAL EVENTS PLANNER IN PLACE
[2019-02-23] VITALS (19 sets, daily range): BP systolic 123–156; BP diastolic 77–108
--- NOTE | 2019-02-23 04:56 | NUR ---
ASSUMED CARE AT 1910H, PT ON NC AT 8LPM AND DECREASED TO 2LPM GRADUALLY AND TOLERATED. WITH MID ABDOMEN DRESSING DRY AND INTACK.NO BLEEDING AND RESPIRATORY DISTRESS NOTED.ON NGT CONNECTED TO LIS WITH DARK GREEN OUTPUT. MONITORING CONTINUED AND TOWARDS GOAL.
[2019-02-23 05:07] LABS: HEMOGLOBIN 10.1 gm/dL (12.0-15.0); MCH 32.6 pg (26.0-34.0); MCHC 34.7 g/dL (28.0-37.0); MCV 93.9 fL (80.0-100.0); MPV 8.9 fl. (7.2-11.1); NUCLEATED RBCS 0 /100WBC; PLATELET COUNT* 183 thou/uL (150-400); RBC 3.08 mil/uL (4.20-5.00); RDW-CV 13.6 % (10.5-14.5); WBC 9.1 thou/uL (4.0-11.0)
[2019-02-23 05:19] LABS: MAGNESIUM 1.7 mg/dL (1.8-2.4); PHOSPHORUS* 4.2 mg/dL (2.5-4.9)
[2019-02-23 05:56] LABS: ABSOLUTE LYMPHOCYTES 0.5 thou/uL (0.8-5.3); ABSOLUTE MONOCYTES 0.2 thou/uL (0.0-1.2); ABSOLUTE NEUTROPHILS 8.4 thou/uL (1.6-8.1); ALBUMIN 1.9 g/dL (3.4-5.0); ANISOCYTOSIS 1+; CALCIUM 8.6 mg/dL (8.5-10.1); PLATELET ESTIMATE ADEQUATE; POIKILOCYTOSIS 1+; TOTAL BILIRUBIN 0.6 mg/dL (<0.1-1.0); TOTAL PROTEIN 5.8 g/dL (6.4-8.2)
[2019-02-23 05:57] LABS: POTASSIUM 2.9 mmol/L (3.5-5.1)
--- NOTE | 2019-02-23 10:51 | NUR ---
ICU rounds: no new needs expressed at this time, pt to start TPN today, working on breathing, suctioning, and cutting back on pain meds.
--- NOTE | 2019-02-23 12:06 | EKG ---
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1960 Requested By: Erik Al Order Number: [id number] Reading MD: Erik Al Measurements Intervals [place] Rate: 82 P: 20 TN: 123 QRS: 27 QRSD: 83 T: 61 QT: 405 QTc: 473 Interpretive Statements Sinus rhythm Borderline low voltage, extremity leads Compared to ECG 02/22/2019 07:37:54 Supraventricular tachycardia no longer present ST (T wave) deviation no longer present Electronically Signed On 02-23-2019 12:06:10 CDT by rEik Al [email or web address] <ELECTRONICALLY SIGNED> By: Erik Al MD, [facility] 02/23/19 1206 0841 0841 Erik Al MD, [facility] /EPI
--- NOTE | 2019-02-23 13:50 | NUR ---
Nutrition: TPN and D5 are exceeding pt's nutritional and fluid needs. Recommend d/c D5 while TPN is going. Recommend standard TPN @ goal rate of 70mL, meeting 100-123% of needs. See RD Assessment Form for details.
--- NOTE | 2019-02-23 14:58 | NUR ---
NG CLAMPED AROUND 1300 FOR MEDICATIONS, INSTRUCTED TO LEAVE CLAMPED UNTIL SURGEON ROUNDED PER DR ROLAND. DR STEPHENS ROUNDED AROUND 1430, ORDERS TO TRY CLEAR LIQUIDS AND KEEP CLAMPED UNLESS NAUSEA AND VOMITTING OCCUR. WILL CONTINUE TO MONITOR.
--- NOTE | 2019-02-23 17:48 | NUR ---
PATIENT HAS PROGRESSED WELL TOWARDS GOALS. ABLE TO WORK WITH PT/OT THIS SHIFT. SAT UP IN RECLINER CHAIR FOR 5 HOURS TODAY. TOLERATING CLEAR LIQUIDS WITH NG CLAMPED AT THIS TIME. NO NAUSEA OR VOMITTING. REPORTS NO SHORTNESS OF AIR. SOME PAIN BUT TOLERABLE AT THIS TIME. PATIENT IS TRYING 1 MG OF DILAUDID WHEN NEEDED INSTEAD OF 2, SEEMS TO TOLERATE WELL SO FAR. FAMILY HAS VISITED THROUGHOUT THE DAY. REMAINS ON 2 LITERS NASAL CANULA. ABDOMINAL BINDER WHEN UP AND MOVING. DRESSING CLEAN, DRY AND INTACT. BED IN LOWEST POSITION, CALL LIGHT IN REACH, REVENUE AGENT IN PLACE.
[2019-02-24] VITALS (21 sets, daily range): BP systolic 123–153; BP diastolic 74–106
[2019-02-24 03:48] LABS: ABSOLUTE LYMPHOCYTES 0.7 thou/uL (0.8-5.3); ABSOLUTE MONOCYTES 0.4 thou/uL (0.0-1.2); ABSOLUTE NEUTROPHILS 8.8 thou/uL (1.6-8.1); BASOPHILS 0.2 %; HEMATOCRIT 27.8 % (37.0-47.0); HEMOGLOBIN 9.3 gm/dL (12.0-15.0); LYMPHOCYTES 7.4 %; MCH 31.6 pg (26.0-34.0); MCHC 33.4 g/dL (28.0-37.0); MCV 94.6 fL (80.0-100.0); MONOCYTES 3.6 %; MPV 8.8 fl. (7.2-11.1); NUCLEATED RBCS 0 /100WBC; PLATELET COUNT* 193 thou/uL (150-400); POLYS 88.8 %; RBC 2.94 mil/uL (4.20-5.00); RDW-CV 13.6 % (10.5-14.5); WBC 9.9 thou/uL (4.0-11.0)
[2019-02-24 04:05] LABS: ALBUMIN 1.8 g/dL (3.4-5.0); CALCIUM 7.7 mg/dL (8.5-10.1); CREATININE 0.9 mg/dL (0.6-1.3); TOTAL BILIRUBIN 0.4 mg/dL (<0.1-1.0); TOTAL PROTEIN 5.3 g/dL (6.4-8.2)
[2019-02-24 04:24] LABS: MAGNESIUM 2.1 mg/dL (1.8-2.4); PHOSPHORUS* 2.6 mg/dL (2.5-4.9)
--- NOTE | 2019-02-24 05:15 | NUR ---
ASSUMED CARE AT 1910h, ON NC AT 2LPM.TPN STARTED.NO DISTRESS AND BLEEDING NOTED.NO EPISODE OF NAUSEA AND VOMITING.CONTINUE MONITORING AND TOWARDS GOAL.
--- NOTE | 2019-02-24 07:09 | NUR ---
SURGERY DOCTOR SEEN THE PT AND TALK TO HER.NGT REMOVED INSTRUCTED BY THE DOCTOR AND MAY HAVE FULL LIQUID AT LUNCH.
--- NOTE | 2019-02-24 08:13 | CON ---
[address] [address] CONSULTATION Name: DARIAN REED Room: [address] IN .R.#: [id number] Admission: 02/19/19 Attend Phys: Zora Wiley MD Discharge: Date of : 56 Report #: [id number] THIS REPORT FOR: //name// CC: Kenneth ISABEL physician/PCP Zora Lechuga MD DATE OF SERVICE: 02/22/2019 PULMONARY CONSULTATION ATTENDING PHYSICIAN: Dr. Kenneth Mcelroy. LOCATION: She was in room #216. She is now in ICU bed 6. INDICATION FOR CONSULTATION: Acute hypoxic respiratory failure, CHF. CLINICAL SUMMARY: The patient is a 59-year-old female, current smoker, who was admitted on 02/19. The patient had a 2-day history of lower abdominal pain. She had some nausea and vomiting, it was not worsened or improved with activity. She was keeping down some fluids. She reported regular bowel movements. Denied any constipation. She had further abdominal pain. She had a CT of the abdomen then, which showed no definite perforation, but possible small bowel necrosis and/or ileus. She was taken for an exploratory laparotomy on the morning of 02/19 and she did have a non-ST GA with some mild bump in her troponins. She got through surgery okay. She had a necrotic area of small bowel that was resected and she had a diagnostic laparoscopy, converted to laparotomy with small bowel resection and reanastomosis, release of complete small-bowel obstruction and lysis of adhesions. Again, she had some necrotic bowel that was resected. She was doing well postoperatively for the last couple of days. She was receiving some IV fluids at 100 mL an hour. Her urine output was good. BUN and creatinine were normal. She was on 2 liters this morning and doing well. When I talked with the surgery resident and then around 8 or 8:30 this morning, she had some supraventricular tachycardia and then had acute shortness of breath. Chest x-ray and then CT angio of the chest showed what appeared to be pulmonary edema and small bilateral pleural effusions. She does have underlying COPD with some bronchiectatic changes in the lower lobes. No masses or tumors was noted. Heart size is upper limits of normal. Mild increase in size of the pulmonary arteries were noted. No pulmonary emboli were noted. I was asked to see the patient. I saw her down in the intensive care unit when she was moved down here. She was on 100% BiPAP and breathing 36 times a minute. After I saw the chest x-ray and the CT angio of the chest, I made the decision and gave her 40 mg of Lasix and we decreased her fluids to 30 an hour thinking this was fluid overload. She is clinically [place] [address] CONSULTATION Name: DARIAN REED Room: [address] IN ..#: [id number] Admission: 02/19/19 Attend Phys: Zora Wiley MD Discharge: Date of : 56 Report #: [id number] PAST MEDICAL HISTORY: She has no known medical allergies. She has had a previous sprained ankle, but other than that she has had some mild chronic kidney disease, some hyperlipidemia, hypertension and some chronic lower back pain. She is on opioids and has some chronic anxiety, which she has been on some lorazepam before. According to the and daughter, she does not have a history of COPD, was not on any inhalers, although she was smoking at home. FAMILY HISTORY: Negative for premature cardiopulmonary disease. PAST SURGICAL HISTORY: Includes a tubal ligation 17 years ago and she has had back surgery in about 2004 and a previous appendectomy. SOCIAL HISTORY: Smokes a pack of cigarettes a day. Denies any alcohol or illicit drug use. OUTPATIENT MEDICATIONS: Included lisinopril 10 mg daily, Apresoline 1 mg at bedtime, hydrocodone 10/325 one tablet every 4 hours and 6 tablets a day, oxycodone IR 20 mg t.i.d. and simvastatin 40 mg daily. She is on DuoNeb treatments, which have been on hold. She is currently on BiPAP and she had one dose of Solu-Medrol 125 mg this morning. She was on some postop and she is now on Solu-Medrol 62.5 mg q. 8 hours and she did receive some adenosine 12 mg this morning for SVT. She has also been on some amiodarone earlier this morning. Nicoderm patches 21 mg daily. She is also on Zosyn for an antibiotic and p.r.n. lorazepam. REVIEW OF SYSTEMS: 14 review of systems reviewed and negative with the family except for pertinent positives noted in the HPI. PHYSICAL EXAMINATION: GENERAL: This is an alert 59-year-old female who responds on 100% BiPAP. Her saturations are 98% at this time. VITAL SIGNS: Currently her blood pressure was 150/85, her heart rate was 130s to 140s and a supraventricular tachycardia, respirations were 32-36 and labored on the BiPAP and her temperature was 36.4 degrees. She is 5 feet 4 inches tall, weight 67 kilograms or 142 pounds, BMI is 24. HEENT: Moist mucous membranes. Mild increase in jugular venous pressure. She has a full face BiPAP mask in place. CHEST: Shows bilateral crackles and occasional expiratory wheeze posteriorly, minimally prolonged expiratory phase. She is not tight at this time. Some use of accessory muscles is noted. CARDIOVASCULAR: Shows tachycardia with a regular rate and rhythm with ventricular response in the 140s to 150s. ABDOMEN: Slightly distended, but soft. She has some drainage coming from her NG tube and there is no rebound tenderness. Previous incision is noted. EXTREMITIES: SCD is in place. She has no cyanosis, clubbing [place] [address] CONSULTATION Name: DARIAN REED Room: [address] IN .R.#: [id number] Admission: 02/19/19 Attend Phys: Zora Wiley MD Discharge: Date of : 56 Report #: [id number] moves all fours to commands at this time and has a nonfocal exam. She is alert and oriented and responsive to my questions. LABORATORY DATA: From 02/22/2018 this morning, hemoglobin is 10, white count 6400, normal differential, platelets are 166,000. Sodium is 143, potassium is 3.8, chloride 110, BUN is 17, creatinine 0.8, glucose is 92 and calcium is 8.3, phosphorus is 2.2. Blood gases attempted and were clotted and they were not able to get a blood gas this morning. Coags show a PTT of 34 yesterday. IMAGING: Chest x-ray and CT angio of the chest were noted as before, left central line is in place without pneumothorax. It appears to be in the SVC, diffuse infiltrates are noted, which appear different from her x-ray from 3 days ago and with small bilateral pleural effusions consistent with fluid overload and congestive heart failure. CT angio of the chest again shows no pulmonary emboli, mild pulmonary artery enlargement, heart size upper limits of normal, small bilateral pleural effusions and diffuse infiltrates. I believe she has Aravind B lines of pleural effusions and she does have some bronchiectatic changes and COPD changes in upper and lower lobes on the CT angio of the chest. No PFTs on this patient. Previous cardiac enzymes are mildly elevated. EKGs did not show any acute change. IMPRESSION: 1. Acute pulmonary edema/flash pulmonary edema. 2. Supraventricular tachyarrhythmia with subsequent pulmonary edema. 3. NONSTEMI. 4. Mild pulmonary artery hypertension on prior echo, PA systolic 45. 4. 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 5. Acute hypoxic respiratory failure, probably related to pulmonary edema. 6. Previous exploratory laparotomy with lysis of the adhesions and small bowel resection for necrotic small bowel, 02/19/2019. PLAN: I gave her Lasix. Will decrease her IV fluids to see if we can get her out of pulmonary edema. Hopefully, get her off the BiPAP soon since it will increase her GI tract air. She is slightly distended at this time and hopefully get her down to 5 or 6 liters nasal cannula. Continue some Levalbuterol breathing treatments to see if her heart rate does not respond to meds and the IV amiodarone and she will have a few doses of steroids, continue on with antibiotics. We will follow up chest x-rays and ABGs as needed and I have discussed this with the patient's and daughter at the bedside. I spent 39 minute critical care consult. <ELECTRONICALLY SIGNED> By: Yoseph Larsen MD 02/24/19 0813 1028 [id number] Larsen MD /nt
--- NOTE | 2019-02-24 10:45 | NUR ---
PATIENT UP TO COMMODE TAKING PO DENIES DISTRESS. BATH DONE. AWAITING THERAPY.
--- NOTE | 2019-02-24 10:50 | NUR ---
ICU rounds: No new needs expressed; plan continues to be home with at dc. Pt to have PT and OT today.
--- NOTE | 2019-02-24 17:46 | NUR ---
UP AMBULATING IN [place] WITH PT. TAKING PO SLOWLY. UP IN CHAIR THIS AFTERNOON. HAS NOT VOIDED SINCE LUBIN WAS REMOVED. INCISION OPEN TO AIR. PT DENIES DISTRESS PROGRESSING.
[2019-02-25] VITALS (21 sets, daily range): BP systolic 128–158; BP diastolic 78–111
[2019-02-25 02:44] LABS: ABSOLUTE LYMPHOCYTES 0.8 thou/uL (0.8-5.3); ABSOLUTE MONOCYTES 0.3 thou/uL (0.0-1.2); ABSOLUTE NEUTROPHILS 6.2 thou/uL (1.6-8.1); BASOPHILS 0.1 %; HEMATOCRIT 26.5 % (37.0-47.0); LYMPHOCYTES 10.5 %; MCH 31.9 pg (26.0-34.0); MCHC 33.8 g/dL (28.0-37.0); MCV 94.3 fL (80.0-100.0); MONOCYTES 3.9 %; MPV 8.8 fl. (7.2-11.1); NUCLEATED RBCS 0 /100WBC; PLATELET COUNT* 184 thou/uL (150-400); POLYS 85.5 %; RBC 2.81 mil/uL (4.20-5.00); RDW-CV 13.6 % (10.5-14.5); WBC 7.3 thou/uL (4.0-11.0)
[2019-02-25 02:52] LABS: CREATININE 0.7 mg/dL (0.6-1.3); TOTAL BILIRUBIN 0.3 mg/dL (<0.1-1.0); TOTAL PROTEIN 5.2 g/dL (6.4-8.2)
--- NOTE | 2019-02-25 10:43 | EKG ---
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
--- NOTE | 2019-02-25 11:40 | NUR ---
Nutrition: TPN d/c'd. Pt toelrated Full Liquids yday. Diet advanced to Soft/low fiber today. Follow up 02/28/19
--- NOTE | 2019-02-25 12:04 | NUR ---
PT RECEIVED FROM CARDIAC STRESS TEST AT 1130. VSS. C/O PAIN AT INCISION SITE, PAIN MGMT PER EMAR.
--- NOTE | 2019-02-25 12:13 | NUR ---
ICU rounds: pt to be tele status soon. Pt off of unit for stress test. Anderson out yesterday. Nurse reported pt to be able to advance diet to soft today. Pt visiting and remains supportive; plan continues to be home with when pt is ready to dc. No needs expressed at this time.
--- NOTE | 2019-02-25 17:41 | NUR ---
PT'S A&O X4. STRESS TEST -VE PER DR TOLEDO. SR/AFIB ON THE MONITOR, RATE CONTROLLED. WORKED WITH PT/OT, WALKED AROUND THE ICU WITH THE HELP OF WALKER. ABD BINDER APPLIED. INCISIONAL WOUND CLEAN AND DRY. TOLERATING SOFT DIET. SELF CARE BATH AND ORAL CARE PROVIDED. PT PROGRESSING TOWARDS GOAL.
[2019-02-26] VITALS (8 sets, daily range): BP systolic 121–145; BP diastolic 63–103
[2019-02-26 04:09] LABS: HEMATOCRIT 28.3 % (37.0-47.0); HEMOGLOBIN 9.7 gm/dL (12.0-15.0); MCH 32.3 pg (26.0-34.0); MCHC 34.5 g/dL (28.0-37.0); MCV 93.6 fL (80.0-100.0); MPV 8.9 fl. (7.2-11.1); RBC 3.02 mil/uL (4.20-5.00); RDW-CV 13.5 % (10.5-14.5); WBC 7.3 thou/uL (4.0-11.0)
[2019-02-26 04:20] LABS: CALCIUM 8.1 mg/dL (8.5-10.1); CREATININE 0.8 mg/dL (0.6-1.3)
--- NOTE | 2019-02-26 11:52 | CARDNUC ---
[place] [address] CARDIAC NUCLEAR IMAGING REPORT Name: DARIAN REED Room: [address] IN [facility]#: [id number] Admission: 02/19/19 Attend Phys: Zora Wiley, Discharge: Date of : 56 Date of Service: 02/26/19 1152 Report #: [id number] THIS REPORT FOR: //name// APPROVED REPORT Study performed: 02/25/2019 10:35:05 Indication: Troponin elevation Patient Location: In-Patient Room #: icu-6 Stress Tech: Maddison Eisenberg Stress Nurse: Martiza Napier RN Ht: 5 ft 5 in Wt: 150 lbs BSA: 1.75 m2 BMI: 24.95 Medical History Medical History: hyperlipidemia, hypertension, pvd Medications: metoprolol, amiodarone, atorvastatin, asa-81 Allergies: nkda Cardiac Risk Factors: age, hyperlipidemia, hypertension, pvd, tobacco, family hx Exercise History: Indeterminate Meds Held (24 hrs): metoprolol Resting Data Rest SPECT myocardial perfusion imaging was performed in supine position 30 minutes following the intravenous injection of 11.2 mCi of Tc-99m Sestamibi. Time of rest injection: 09:00 The images were gated to evaluate regional wall motion and calculate left ventricular ejection fraction. Administration Route: IV Administration Site: Other Pharmacologic Stress Pharmacologic stress test was performed by injecting Regadenoson 0.4 mg IV push over 10-15 seconds immediately followed by the intravenous injection of 35.0 mCi of Tc-99m Sestamibi. Time of stress injection: 10:30 Administration Route: IV Administration Site: Other Heart Rate at time of stress injection: 119 bpm. Gated Stress SPECT was performed 40 [place] [address] CARDIAC NUCLEAR IMAGING REPORT Name: DARIAN REED Room: [address] IN ..#: [id number] Admission: 02/19/19 Attend Phys: Zora Wiley, Discharge: Date of : 56 Date of Service: 02/26/19 1152 Report #: [id number] The images were gated to evaluate regional wall motion and calculate left ventricular ejection fraction. Prone imaging was performed. Stress Test Details Stress Test: Pharmacologic stress testing performed using 0.4 mg of regadenoson per 5 mL given IV over 10 seconds. Reason for pharmacologic stress test: physical limitation. 60 mg caffeine given for dyspnea. HR Max Heart Rate (APMHR): 159 bpm Resting HR: 73 bpm Target HR (85% APMHR): 135 bpm Max HR Achieved: 119 bpm % of APMHR: 74 Recovery HR: 85 bpm BP Resting BP: 149/99 mmHg Max BP: 164/98 mmHg Recovery BP: 169/100 mmHg ECG Resting ECG: Sinus Rhythm Stress ECG: Sinus Tachycardia ST Change: None Arrhythmia: APC's Recovery ECG: Sinus Rhythm Recovery ST Change: None Recovery Arrhythmia: APC's Clinical Reason for Termination: Completed protocol Exercise duration: 0 min sec Exercise capacity: 1 METs The patient tolerated Lexiscan infusion without significant symptoms. Nurse Comments pt in icu , recent abdominal surgery. unable to walk on treadmill d/t weakness Stress ECG Conclusion The baseline EKG show sinus rhythm without significant ST or T wave abnormality. EKGs obtained during and post exercise stress show sinus rhythm and sinus tachycardia with no significant ST or T wave changes when compared baseline. There were frequent premature atrial contractions noted during and post Lexiscan infusion. No other significant stress-[place] [address] CARDIAC NUCLEAR IMAGING REPORT Name: DARIAN REED LIZ Room: [address]#: [id number] Admission: 02/19/19 Attend Phys: Zora Wiley, Discharge: Date of : 56 Date of Service: 02/26/19 1152 Report #: [id number] Study Quality Study: Good Artifact: Mild Breast artifact Study Data At rest, the left ventricular ejection fraction was 43%.. Post stress, the left ventricular ejection was 39%.. TID = 1.06. Perfusion Perfusion images show mild photopenia in the mid anterior wall consistent with breast attenuation artifact. No other significant fixed or reversible defects were identified. Wall Motion There is global hypokinesis noted. Nuclear Conclusion ECG Findings: negative for ischemia Clinical Findings: negative for ischemia Nuclear Findings: negative for ischemia Exercise Capacity: not assessed Left Ventricular Function: abnormal Risk Study: moderate Myocardial perfusion images show no reversible defect to suggest ischemia. There is global hypokinesis on gated images. Findings consistent with a nonischemic cardiomyopathy. This study would be considered moderate risk due to left ventricular systolic dysfunction. <Conclusion> The baseline EKG show sinus rhythm without significant ST or T wave abnormality. EKGs obtained during and post exercise stress show sinus rhythm and sinus tachycardia with no significant ST or T wave changes when compared baseline. There were frequent premature atrial contractions noted during and post Lexiscan infusion. No other significant stress-induced arrhythmias identified. <ELECTRONICALLY SIGNED> By: Mj Dillard MD, FACC 02/26/19 1152 1152 1152 Mj Dillard MD, FACC /INF
--- NOTE | 2019-02-26 17:39 | NUR ---
PATIENT DOING WELL THIS SHIFT, WALKED WITH PT TODAY, TOLERATED WELL. TOLERATING MEALS. PAIN WELL MAANGED THIS SHIFT. REMAINS TELE STATUS. POSSIBLE D/C TO HOME TOMORROW IF ALL SPECIALTIES AGREE. PATIENT STATES SHE IS READY TO GO HOME. STRESS TEST IN COMPUTER. FAMILY VISITED THROUGHOUT DAY. BED IN LOWEST POSITION, CALL LIGHT IN REACH, CARDIAC MONTOR IN PLACE.
[2019-02-27] VITALS: BP 121/59
[2019-02-27 04:01] LABS: HEMATOCRIT 28.5 % (37.0-47.0); HEMOGLOBIN 9.7 gm/dL (12.0-15.0); MCH 32.1 pg (26.0-34.0); MCHC 34.1 g/dL (28.0-37.0); MPV 8.4 fl. (7.2-11.1); RBC 3.04 mil/uL (4.20-5.00); RDW-CV 13.3 % (10.5-14.5); WBC 8.9 thou/uL (4.0-11.0)
[2019-02-27 04:39] VITALS: BP 126/76
[2019-02-27 04:44] LABS: CALCIUM 7.9 mg/dL (8.5-10.1); CREATININE 0.8 mg/dL (0.6-1.3); POTASSIUM 3.4 mmol/L (3.5-5.1)
[2019-02-27] MEDS ORDERED: NEBULIZER MISCELL (08:39)
[2019-02-27] MEDS ORDERED: TOPROL XL100 MG PO (08:39)
[2019-02-27] MEDS ORDERED: OXYCODONE HCL10 MG PO (08:39)
[2019-02-27] MEDS ORDERED: LEVALBUTER0.63 MG/3 INH (08:39)
[2019-02-27] MEDS ORDERED: PREDNISONE 10 M10 MG PO (08:39)
[2019-02-27] MEDS ORDERED: IPRATROPIU0.2 MG/1 M INH (08:39)
[2019-02-27] MEDS ORDERED: LEVAQUIN 500 M500 M1 PO (08:39)
[2019-02-27] MEDS ORDERED: PACERONE 200 M200 M1 PO (08:39)
[2019-02-27 09:39] VITALS: BP 165/89
[2019-02-27 10:28] VITALS: BP 126/76
[2019-02-27] MEDS ORDERED: PAIN RELIEVER325 MG PO (11:10)
[2019-02-27] MEDS ORDERED: MIRALAX17 GM PO (11:10)
--- NOTE | 2019-02-27 13:09 | NUR ---
PT SEEN BY CARDIOLOGY AND SURGERY, BOTH OF THEM OKAY FOR THE PT TO BE DISCHARGED. VSS. UP AD JOSÉ MIGUEL. PAIN CONTROLLED BY MEDS. TOLERATING DIET. LEFT IJ OUT. NO ANY COMPLICATIONS. DISCHARGE EDUCATION GIVEN TO THE PATIENT AND . PT LEFT THE UNIT AT 1245 IN A WHEELCHAIR.
--- NOTE | 2019-02-28 16:46 | EKG ---
[place] [address] ELECTROCARDIOGRAM REPORT Name: BRIANNADARIANPedrito HILL Room: [address] DIS IN M.R.#: [id number] Admission: 02/19/19 Attend Phys: Zora Wiley MD Discharge: 02/27/19 Date of : 56 Report #: [id number] THIS REPORT FOR: //name// [facility] Test Date: 2019-02-25 Test Time: 09:14:18 Pat Name: DARIAN REED Department: Room: [address] Gender: F Credit Analyst: [facility] : 1960 Requested By: Erik Al Order Number: [id number] MD: Mj Dillard Measurements Intervals [place] Rate: 69 P: -9 LA: 100 QRS: 16 QRSD: 85 T: 31 QT: 429 QTc: 460 Interpretive Statements Sinus rhythm Short LA interval Compared to ECG 02/25/2019 07:51:35 Short LA interval now present Prolonged QT interval no longer present Electronically Signed On 02-28-2019 16:46:08 CDT by Mj Dillard [email or web address] <ELECTRONICALLY SIGNED> By: Mj Dillard MD, FACC 02/28/19 1646 Mj Dillard MD, FAC /EPI
== END 2019-02-27 12:45 | disposition home or self-care (01) | DRG 329 ==
LOC: M.ERS 04:11 → M.TBA-ER 06:30 → M.ICU 06:30 → M.2W 02-21 17:39 → M.ICU 02-22 08:50
PROVIDERS: Family Medicine; Internal Medicine; Internal Medicine Critical Care Medicine; Personal Emergency Response Attendant; Surgery; ADMIT Internal Medicine
PROC: 0DB80ZZ Excision of Small Intestine, Open Approach (ICD-10-PCS; principal; 2019-02-20)
PROC: 0D9670Z Drainage of Stomach with Drainage Device, Via Natural or Artificial Opening (ICD-10-PCS; principal; 2019-02-20)
PROC: 0WJP4ZZ Inspection of Gastrointestinal Tract, Percutaneous Endoscopic Approach (ICD-10-PCS; principal; 2019-02-20)
PROC: 5A09357 Assistance with Respiratory Ventilation, Less than 24 Consecutive Hours, Continuous Positive Airway Pressure (ICD-10-PCS; 2019-02-22)
PROC: 02HV33Z Insertion of Infusion Device into Superior Vena Cava, Percutaneous Approach (ICD-10-PCS; 2019-02-22)
PROC: B548ZZA Ultrasonography of Superior Vena Cava, Guidance (ICD-10-PCS; 2019-02-22)
DX: K45.0 Other specified abdominal hernia with obstruction, without gangrene (principal); I21.A1 Myocardial infarction type 2; K63.1 Perforation of intestine (nontraumatic); J96.01 Acute respiratory failure with hypoxia; J18.9 Pneumonia, unspecified organism; I47.1 Supraventricular tachycardia; K55.9 Vascular disorder of intestine, unspecified; R65.10 Systemic inflammatory response syndrome (SIRS) of non-infectious origin without acute organ dysfunction; E44.0 Moderate protein-calorie malnutrition; I42.9 Cardiomyopathy, unspecified; J44.1 Chronic obstructive pulmonary disease with (acute) exacerbation; J44.0 Chronic obstructive pulmonary disease with (acute) lower respiratory infection; F32.9 Major depressive disorder, single episode, unspecified; F41.9 Anxiety disorder, unspecified; I12.9 Hypertensive chronic kidney disease with stage 1 through stage 4 chronic kidney disease, or unspecified chronic kidney disease; I27.20 Pulmonary hypertension, unspecified; N18.3 Chronic kidney disease, stage 3 (moderate); E78.5 Hyperlipidemia, unspecified; F17.210 Nicotine dependence, cigarettes, uncomplicated; M54.5 Low back pain; G89.29 Other chronic pain; Z68.25 Body mass index [BMI] 25.0-25.9, adult; Z98.891 History of uterine scar from previous surgery; Z90.49 Acquired absence of other specified parts of digestive tract; Z79.899 Other long term (current) drug therapy; Z82.49 Family history of ischemic heart disease and other diseases of the circulatory system

== ENCOUNTER → 2019-04-11 | Outpatient (CLI) | payer OTHER ==
[~2019-04-11] VITALS: Ht 165.1 cm; Wt 56.8 kg
[2019-04-11] VITALS (7 sets, daily range): BP systolic 139–163; BP diastolic 57–82
[~2019-04-11] MED LIST changes: +AMITRIPTYLINE100 MG PO; +IPRATROPIU0.2 MG/1 M INH; +LEVALBUTER0.63 MG/3 INH; +LEVAQUIN 500 M500 M1 PO; +MIRALAX17 GM PO; +NEBULIZER MISCELL; +OXYCODONE HCL10 MG PO; +PACERONE 200 M200 M1 PO; +PAIN RELIEVER325 MG PO; +PREDNISONE 10 M10 MG PO; +TOPROL XL100 MG PO
[2019-04-11 08:28] LABS: MCH 32.6 pg (26.0-34.0); MCHC 33.3 g/dL (28.0-37.0); MCV 97.9 fL (80.0-100.0); MPV 7.8 fl. (7.2-11.1); RBC 3.37 mil/uL (4.20-5.00); RDW-CV 16.5 % (10.5-14.5); WBC 6.9 thou/uL (4.0-11.0)
[2019-04-11 08:45] LABS: INR 0.9; PROTIME 9.5 Seconds (9.20-11.50)
[2019-04-11 08:46] LABS: CALCIUM 8.3 mg/dL (8.5-10.1); CREATININE 0.9 mg/dL (0.6-1.3); POTASSIUM 5.2 mmol/L (3.5-5.1)
[2019-04-11 08:51] LABS: ALBUMIN 3.2 g/dL (3.4-5.0); TOTAL BILIRUBIN 0.2 mg/dL (<0.1-1.0); TOTAL PROTEIN 6.6 g/dL (6.4-8.2)
--- NOTE | 2019-04-11 13:35 | CARD ---
[address] [address] CARDIAC CATH REPORT Name: DARIAN REED [id number] Admission: 04/11/19 Attend Phys: Rishabh Martinez MD, Discharge: Date of : 56 Report #: [id number] THIS REPORT FOR: //name// APPROVED REPORT Study performed: 04/11/2019 09:11:09 Patient Details The patient is a 59 year-old female Event Personnel Rishabh Martinez Tool Design Draftsperson, Toby AbreuIS Scrub, Bossman Monsivais CHANGE CONTROL ANALYST Monitor, Reina Mcelroy RTR Monitor, Bing Haro RN Collateral Clerk Procedures Performed Left Heart Cath w/or w/o Coronaries [id number] [facility] Indication Non-STEMI Risk Factors Hypercholesterolemia Previous Procedures/Diagnoses Previous CA Procedure Narrative The patient was brought electively to the Cardiac Catheterization Laboratory and was prepped and draped in a sterile manner. The right femoral was infiltrated with 2% Lidocaine subcutaneous anesthesia. A [place] 6 FR sheath was inserted into the RFA. Coronary angiography was performed using coronary diagnostic catheters. The right coronary system was accessed and visualized with a JR 4 6F catheter. The left coronary system was accessed and visualized with a JL 4 6F catheter. The left ventricle was accessed and visualized with a Straight Pig 6F catheter. Left ventricular/Aortic Valve gradient assessed via catheter pullback. Left ventriculogram was performed in ECHEVARRIA projection. Pre-demployment femoral angiogram was performed . Closure device was deployed with a Fr MynxGrip 6/7F. The patient tolerated the procedure well and there were no complications associated with the procedure. There was no hematoma. Intraoperative Conscious Sedation Sedation start time: 952 Case end Time: [place] [address] CARDIAC CATH REPORT Name: BRIANNADARIAN CLEMENTSNE Room: [facility]#: [id number] Admission: 04/11/19 Attend Phys: Rishabh Martinez MD, Discharge: Date of : 56 Report #: [id number] Fentanyl 50 mcg Versed 3 mg Fluoro Time: 2.6 minutes Dose: DAP 17311 cGycm2 403 mGy Contrast Type and Amount: Visipaque 80 ml Coronary Angiography The patient's coronary anatomy is right dominant. Diagnostic Cath Left Main 0% narrowing LAD Tortuosity with 20% mid LAD narrowing Circumflex 0% narrowing Right Coronary Dominant vessel with tortuosity and 30% mid vessel narrowing Left Ventriculography The left ventricle is normal in size with normal contractility. The left ventricular ejection fraction is estimated to be 55%. Left ventricular wall motion abnormalities are not present. There is no mitral insufficiency. Hemodynamics The aortic pressure is 178/76 mmHg with a mean of 110 mmHg. The left ventricular pressure is 153/6 mmHg with a mean of mmHg. The left ventricular end diastolic pressure is 26 mmHg. Conclusion #1 mild coronary artery disease characterized by the following: A tortuosity with 20% mid LAD narrowing B tortuosity with 30% mid right coronary narrowing, this being a dominant vessel #2 normal left ventricular systolic function, estimate ejection fraction being 55% #3 mild systemic systolic hypertension Recommendations [place] [address] CARDIAC CATH REPORT Name: DARIAN REED Room: [facility]#: [id number] Admission: 04/11/19 Attend Phys: Rishabh Martinez MD, Discharge: Date of : 56 Report #: [id number] Diagnostic Cath Approved by: Rishabh Martinez MD Date/Time: 04/11/2019 13:34:30 <ELECTRONICALLY SIGNED> By: Rishabh Martinez MD, [facility] 04/11/19 1335 1335 1335Rishabh Martinez MD, FAC /INF
== END | disposition home or self-care (01) ==
LOC: M.CL 08:06
PROVIDERS: Internal Medicine
DX: I25.10 Atherosclerotic heart disease of native coronary artery without angina pectoris (principal); I21.4 Non-ST elevation (NSTEMI) myocardial infarction; I10 Essential (primary) hypertension; F32.9 Major depressive disorder, single episode, unspecified; F41.9 Anxiety disorder, unspecified; F17.210 Nicotine dependence, cigarettes, uncomplicated; Z90.49 Acquired absence of other specified parts of digestive tract; Z79.899 Other long term (current) drug therapy

== ENCOUNTER 2019-06-02 15:31 | Inpatient (IN) | payer OTHER ==
[~2019-06-02] VITALS: Ht 165.1 cm; Wt 61.7 kg
[2019-06-02 15:47] VITALS: BP 157/80
[2019-06-02 16:48] LABS: ABSOLUTE EOSINOPHILS 0.1 thou/uL (0.0-0.7); ABSOLUTE LYMPHOCYTES 2.9 thou/uL (0.8-5.3); ABSOLUTE MONOCYTES 0.3 thou/uL (0.0-1.2); ABSOLUTE NEUTROPHILS 2.2 thou/uL (1.6-8.1); BASOPHILS 0.4 %; EOSINOPHILS 1.7 %; HEMATOCRIT 37.8 % (37.0-47.0); HEMOGLOBIN 12.8 gm/dL (12.0-15.0); LYMPHOCYTES 51.9 %; MCH 32.3 pg (26.0-34.0); MCV 94.9 fL (80.0-100.0); MONOCYTES 5.4 %; NUCLEATED RBCS 0 /100WBC; PLATELET COUNT* 195 thou/uL (150-400); POLYS 40.6 %; RBC 3.98 mil/uL (4.20-5.00); RDW-CV 14.3 % (10.5-14.5); WBC 5.5 thou/uL (4.0-11.0)
[2019-06-02 16:56] LABS: CALCIUM 8.7 mg/dL (8.5-10.1); CREATININE 1.1 mg/dL (0.6-1.3); POTASSIUM 3.4 mmol/L (3.5-5.1)
[2019-06-02 17:01] LABS: ALBUMIN 3.7 g/dL (3.4-5.0); TOTAL BILIRUBIN 0.1 mg/dL (<0.1-1.0); TOTAL PROTEIN 6.8 g/dL (6.4-8.2)
[2019-06-02 17:40] LABS: URINE BILIRUBIN NEGATIVE (Negative); URINE BLOOD NEGATIVE (Negative); URINE CLARITY CLEAR; URINE COLOR YELLOW; URINE GLUCOSE-RANDOM NEGATIVE (Negative); URINE KETONES NEGATIVE (Negative); URINE LEUKOCYTES-REFLEX 1+ (Negative); URINE NITRITE-REFLEX NEGATIVE (Negative); URINE PROTEIN NEGATIVE (Negative); URINE UROBILINOGEN 0.2 E.U./dl (0.2-1.0)
[2019-06-02 17:53] LABS: BACTERIA-REFLEX 1-9 Few /HPF (None Seen); CASTS None Seen /LPF (None Seen); CRYSTALS None Seen /LPF (None Seen); MUCUS None Seen strn/LPF (None Seen); SQUAMOUS 4-10 Moderate /LPF (0-3); URINE WBC-REFLEX 6-15 Few /HPF (0-5)
[2019-06-02 17:54] LABS: URINE RBC None Seen /HPF (0-2)
[2019-06-02 19:00] VITALS: BP 131/75
[2019-06-03 04:00] VITALS: BP 164/109
--- NOTE | 2019-06-03 07:23 | NUR ---
PT ARRIVE AT 0100 FROM PACU. VSS WITH 2L O2 BY NC. IV FLUID RUNNING ORDERED. DILAUDID GIVEN FOR SEVERE PAIN PER PT REQUEST. PAIN PARTIALLY RELIEVED. LD DRAIN IN PLACE DRAINING SMALL AMOUNT OF SEROSANGUINEOUS DRAINAGE. MIDLINE INCISION DRESSING C/D/I. NO C/O NAUSEA VOMITING. HOURLY ROUNDING COMPLETED. WILL CONTINUE TO MONITOR.
[2019-06-03 08:15] VITALS: BP 199/119
[2019-06-03 08:40] LABS: ABSOLUTE LYMPHOCYTES 1.5 thou/uL (0.8-5.3); ABSOLUTE MONOCYTES 0.6 thou/uL (0.0-1.2); ABSOLUTE NEUTROPHILS 6.8 thou/uL (1.6-8.1); BASOPHILS 0.2 %; HEMATOCRIT 38.2 % (37.0-47.0); HEMOGLOBIN 12.9 gm/dL (12.0-15.0); LYMPHOCYTES 16.8 %; MCH 32.4 pg (26.0-34.0); MCHC 33.9 g/dL (28.0-37.0); MCV 95.8 fL (80.0-100.0); MONOCYTES 6.6 %; NUCLEATED RBCS 0 /100WBC; PLATELET COUNT* 192 thou/uL (150-400); POLYS 76.4 %; RBC 3.98 mil/uL (4.20-5.00); RDW-CV 14.1 % (10.5-14.5); WBC 8.9 thou/uL (4.0-11.0)
[2019-06-03 08:57] LABS: CALCIUM 8.3 mg/dL (8.5-10.1); CREATININE 1.3 mg/dL (0.6-1.3); MAGNESIUM 1.5 mg/dL (1.8-2.4); POTASSIUM 4.1 mmol/L (3.5-5.1)
[2019-06-03 12:00] VITALS: BP 169/97
--- NOTE | 2019-06-03 14:34 | EKG ---
[place] [address] ELECTROCARDIOGRAM REPORT Name: DARIAN REED Room: [address] ADM IN .R.#: [id number] Admission: 06/02/19 Attend Phys: Annie Astudillo Discharge: Date of : 56 Report #: [id number] THIS REPORT FOR: //name// [facility] ED Test Date: 2019-06-02 Test Time: 16:40:13 Pat Name: DARIAN REED Department: Room: [facility] Gender: F Marinator: : 1960 Requested By: Deonte Storm Order Number: [id number] MD: Rishabh Martinez Measurements Intervals [place] Rate: 85 P: -21 [place]: 112 QRS: -15 QRSD: 112 T: 29 QT: 368 QTc: 438 Interpretive Statements Sinus rhythm Borderline short [place] interval Borderline intraventricular conduction delay Low voltage, precordial leads Baseline wander in lead(s) V4 Compared to ECG 02/25/2019 09:14:18 Low QRS voltage now present Electronically Signed On 06-03-2019 14:34:33 CDT by Rishabh Martinez [email or web address] <ELECTRONICALLY SIGNED> By: Rishabh Martinez MD, FACC 06/03/19 1434 1640 1640 Rishabh Martinez MD, FAC /EPI
[2019-06-03 15:27] VITALS: BP 159/88
--- NOTE | 2019-06-03 16:54 | NUR ---
PT REMAINED ALERT AND ORIENTED. PHYSICAL THERAPIST ASSISTANT PUMP SET UP PER ORDERS. NAUSEA MEDS GIVEN ORDERED. BLOOD PRESSURE MEDS GIVEN ORDERED. PT C/O IRRITATION AND RASH TO RT SIDE OF BODY AND EYE IRRITATION. BENADRYL AND EYE DROPS GIVEN ORDERED. PAIN MEDS GIVEN ORDERED. LUBIN PLACED ORDERED. PT REFUSED PT/OT. FALL RISK PRECAUTIONS IN PLACE. HOURLY ROUNDING COMPLETED. LD DRAIN INTACT. WILL CONTINUE TO MONITOR.
--- NOTE | 2019-06-03 18:38 | NUR ---
MORNING ORDERS WAS TO GET PATIENT UP WITH ASSIT AND UP TO BEDSIDE COMMODE. SURGERY RESIDENT CAME TO SEE PATIENT AFTER FAMILY EXPRESSED CONCERNS OVER PATIENTS IRRATED EYE AND SWELLING. SURGERY RESIDENT CAME BY AND FAMILY STATED PATIENT IS NOT TO GET UP TODAY OR TOMORROW AND TO REST. STATED LUBIN IS BEING ORDERED FOR IMMOBILIZATION. LUBIN WAS ORDERED HOWEVER IN THE NOTE LUBIN FOR STRICT I/O'S, AND ORDERS FOR OT/PT, OT/PT WERE ORDERED POST OP ALREADY. DAUGHTER CALLED AFTER HEARING PT/OT TRIED TO SEE THE PATIENT. STATED THEY WANTED CLARIFICATION BECAUSE PATIENT IS NOT TO GET UP. PAGED SURGERY AGAIN, TALKED WITH THE RESIDENT BRYANTPARAnnie AND STATED PATIENT IS NOT ON BEDREST, PT/OT ORDERED, AND OK FOR PATIENT TO GET UP AND MOVE AROUND. STATED TO GIVE EDUCATION TO PATIENT AND FAMILY ABOUT BENEFITS OF MOVING POST OP. GAVE THIS INFORMATION TO PATIENT AND EXPLAINED THE ORDERS. PT BECAME TEARFUL AND SAID SHE WOULD TRY TOMORROW BUT NOT TODAY, SHE DID NOT FEEL GOOD. WILL CONTINUE TO MONITOR.
[2019-06-03 20:37] VITALS: BP 143/79
[2019-06-03 23:47] VITALS: BP 148/98
[2019-06-04 04:13] VITALS: BP 148/93
[2019-06-04 05:11] LABS: ABSOLUTE LYMPHOCYTES 1.9 thou/uL (0.8-5.3); ABSOLUTE MONOCYTES 0.5 thou/uL (0.0-1.2); ABSOLUTE NEUTROPHILS 4.1 thou/uL (1.6-8.1); BASOPHILS 0.2 %; EOSINOPHILS 0.4 %; HEMATOCRIT 31.6 % (37.0-47.0); LYMPHOCYTES 29.5 %; MCHC 34.5 g/dL (28.0-37.0); MCV 95.8 fL (80.0-100.0); MONOCYTES 8.1 %; NUCLEATED RBCS 0 /100WBC; PLATELET COUNT* 151 thou/uL (150-400); POLYS 61.8 %; RDW-CV 13.9 % (10.5-14.5); WBC 6.6 thou/uL (4.0-11.0)
[2019-06-04 05:15] LABS: HEMOGLOBIN 10.9 gm/dL (12.0-15.0)
[2019-06-04 05:47] LABS: POTASSIUM 3.6 mmol/L (3.5-5.1)
--- NOTE | 2019-06-04 05:54 | NUR ---
PT STILL USING FISH CULTURIST PUMP DILAUDID 0.2MG/6 MINUTES WITH 1 MG/HR LOCKOUT AND 80 MLS OF LR PER HOUR. SHE STILL HAS NOT ATTEMPTED TO GET OUT OF BED. HER LUBIN STILL IN PLACE. THE ABDOMINAL BINDER IS STILL CLEAN AND DRY AND INTACT. 2L OF O2 NC AND PULSE OX MONITORING. HAD SOME NAUSEA OVERNIGHT GAVE ZOFRAN BUT CAN DRINK CLEAR LIQUIDS. BOTH LD DRAINS STILL FUNCTIONING. SHE DID REQUEST HER EYE DROPS ONE TIME DURING THE NIGHT. PLAN IS TO WORK WITH PT/OT, PAIN MANAGEMENT. WILL CONTINUE TO FOLLOW PLAN OF CARE.
[2019-06-04 06:46] LABS: CALCIUM 8.7 mg/dL (8.5-10.1); CREATININE 0.9 mg/dL (0.6-1.3)
[2019-06-04 07:30] VITALS: BP 161/96
[2019-06-04 16:00] VITALS: BP 163/92
[2019-06-04 20:46] VITALS: BP 163/91
[2019-06-05 04:34] LABS: ABSOLUTE EOSINOPHILS 0.1 thou/uL (0.0-0.7); ABSOLUTE LYMPHOCYTES 1.6 thou/uL (0.8-5.3); ABSOLUTE MONOCYTES 0.4 thou/uL (0.0-1.2); ABSOLUTE NEUTROPHILS 2.9 thou/uL (1.6-8.1); BASOPHILS 0.4 %; EOSINOPHILS 1.2 %; HEMATOCRIT 32.4 % (37.0-47.0); HEMOGLOBIN 11.1 gm/dL (12.0-15.0); LYMPHOCYTES 31.1 %; MCH 32.5 pg (26.0-34.0); MCHC 34.2 g/dL (28.0-37.0); MONOCYTES 8.6 %; MPV 8.8 fl. (7.2-11.1); NUCLEATED RBCS 0 /100WBC; PLATELET COUNT* 146 thou/uL (150-400); POLYS 58.7 %; RBC 3.41 mil/uL (4.20-5.00); RDW-CV 13.5 % (10.5-14.5)
--- NOTE | 2019-06-05 04:41 | NUR ---
STILL USING KNOCKUP WORKER PUMP HAS HAS LUBIN. SHE HAS NOT BEEN OUT OF BED BUT WILL NEED TO WORK WITH THERAPY. SHE WAS ABLE TO GET REST THROUGH THE NIGHT WITH HER PAIN CONTROLLED BETTER. PLAN IS TO MANAGE PAIN AND WORK WITH THERAPY. SHE IS TOLERATING FULL LIQUID DIET. WILL CONTINUE TO FOLLOW PLAN OF CARE.
[2019-06-05 05:04] LABS: CALCIUM 8.8 mg/dL (8.5-10.1); CREATININE 0.8 mg/dL (0.6-1.3); MAGNESIUM 1.6 mg/dL (1.8-2.4); POTASSIUM 3.2 mmol/L (3.5-5.1)
[2019-06-05 15:04] LABS: MAGNESIUM 1.6 mg/dL (1.8-2.4); POTASSIUM 3.5 mmol/L (3.5-5.1)
[2019-06-05 16:15] VITALS: BP 175/99
--- NOTE | 2019-06-05 17:07 | NUR ---
PATIENT ALERT AND ORIENTED X 4. VITAL SIGNS STABLE ON ROOM AIR. UP WITH ASSISTANCE TO THE BATHROOM. IV PATENT AND SALINE LOCKED. RIVERBOAT MASTER PUMP DISCONTINUED. LUBIN DISCONTINUED. PAIN BEING MANAGED WITH PO MEDICATION. DENIES NAUSEA AT THIS TIME. UP AND AMBULATED WITH THERAPY. HOURLY ROUNDS MAINTAINED THROUGHOUT THE SHIFT. CALL LIGHT WITHIN REACH. NURSING WILL CONTINUE TO MONITOR.
[2019-06-05 20:21] VITALS: BP 182/117
[2019-06-06 03:49] LABS: ABSOLUTE EOSINOPHILS 0.1 thou/uL (0.0-0.7); ABSOLUTE LYMPHOCYTES 2.1 thou/uL (0.8-5.3); ABSOLUTE MONOCYTES 0.4 thou/uL (0.0-1.2); ABSOLUTE NEUTROPHILS 1.8 thou/uL (1.6-8.1); BASOPHILS 0.4 %; EOSINOPHILS 2.3 %; HEMATOCRIT 33.1 % (37.0-47.0); HEMOGLOBIN 11.3 gm/dL (12.0-15.0); LYMPHOCYTES 47.9 %; MCH 32.1 pg (26.0-34.0); MCV 94.5 fL (80.0-100.0); MONOCYTES 8.5 %; MPV 7.9 fl. (7.2-11.1); NUCLEATED RBCS 0 /100WBC; PLATELET COUNT* 155 thou/uL (150-400); POLYS 40.9 %; RBC 3.51 mil/uL (4.20-5.00); RDW-CV 14.1 % (10.5-14.5); WBC 4.3 thou/uL (4.0-11.0)
[2019-06-06 04:00] VITALS: BP 185/97
[2019-06-06 04:02] LABS: CREATININE 0.8 mg/dL (0.6-1.3); POTASSIUM 3.8 mmol/L (3.5-5.1)
--- NOTE | 2019-06-06 04:11 | NUR ---
ASSESSMENT: PT REMAIN ALERT AND ORIENT TIMES FOUR. DID NOT GET OOB. AT THE BEGINNING OF THE SHIFT PT WAS C/O OF SEVERE ABD PAIN. PT STATE THAT TYLENOL DOES NOT "WORK" FOR HER. PT DECIDED TO WAIT FOR HER 2200 DOSE OF OXYCODONE. [id number] WORKS FOR PTS PAIN. NO BM THIS SHIFT. CRICKET LD DRAINS WITH MINIMAL AMTS OF SEROUS DRAINAGE. VSS, AFEBRILE. CONTINUOUS PULSE OZ WAS DC'D AFTER DENTURE MODEL MAKER HAS BEEN DC'D. SLOW PROGRESS, WILL CONTINUE TO MONITOR.
[2019-06-06 08:02] VITALS: BP 155/97
--- NOTE | 2019-06-06 16:48 | NUR ---
PT A&Ox4. VITALS STABLE. WORKED WELL WITH PT AND WALKED HALLS, PT SIGNED OFF. UP STB WITH WALKER TO BATHROOM. DRESSINGS CLEAN, DRY AND INTACT. DRAINS PATENT, I&O CHARTED AT END OF SHIFT. PAIN PARTIALLY CONTROLLED WITH OXY IR, TYLENOL AND MORPHINE. DENIED NAUSEA. TOLERATING SOME FOOD. FAMILY IN ROOM MOST OF THE DAY. CALL LIGHT WITHIN REACH. WILL CONTINUE TO MONITOR.
[2019-06-06 17:25] VITALS: BP 180/101
[2019-06-06 20:01] VITALS: BP 176/88
--- NOTE | 2019-06-06 21:29 | OP ---
[address] [address] OPERATIVE REPORT Name: BRIANNADARIAN LIZ Room: [address] IN .R.#: [id number] Admission: 06/02/19 Attend Phys: Annie Astudillo Discharge: Date of : 56 Report #: [id number] THIS REPORT FOR: //name// CC: Bib Spicer DATE OF SERVICE: 06/02/2019 SURGEON: Ash Spicer DO ENVIRONMENTAL SERVICES COORDINATOR: Dr. Vahe Henry. PROCEDURE: Exploratory laparotomy, bilateral component separation, complex hernia repair with mesh. INDICATIONS: The patient is a 59-year-old female who presented to [facility] with complaints of an incisional hernia with new draining fluid from the midline. Several months ago, she had an exploratory laparotomy and small bowel resection for a small bowel obstruction. Shortly after her procedure, she had fascial dehiscence. She has been to the General Surgery Clinic to discuss hernia repair. Unfortunately, this evening, she noticed a change in her hernia, which prompted her ER visit. In the Emergency Department, she was stable. Her labs were normal and her physical exam revealed a skin opening where hernia sac and transverse colon could be visualized due to evisceration. Operative intervention was indicated. The risks of surgery were discussed in detail with the patient and the patient's . Some of the risks including pain, damage to the intestine, hernia recurrence and mesh complications were explained. The patient wished to proceed with the operation. OPERATIVE DESCRIPTION: The patient was taken to the operating room theater and placed in the supine position. General anesthesia was induced without complication. Bilateral SCDs were placed. Two grams of Ancef were given. A timeout was performed and all were in agreement. The patient's abdomen was prepped and draped in the standard sterile fashion. Using a 10 blade scalpel just cephalad to her hernia, a small 2 cm incision was made. Dissection was carried down to the fascia using electrocautery. Next, the skin above the hernia just caudad to the incision was elevated using Adson and the hernia sac and colon were carefully dissected off of the dermis. The dissection was continually carried caudad until the entire hernia was appreciated. The hernia was approximately 8 cm x 12 cm in dimension. The hernia sac was opened and the colon was appreciated. This was reduced back into the abdominal cavity. The hernia sac was then dissected free from surrounding structures and taken off the field using electrocautery. The colon was inspected and was found without injury. The hernia was wide mouthed and the fascial edges could not be approximated in the midline without tension. Given this finding, a component separation was carried out, subcutaneous flaps on [place] [id number] OPERATIVE REPORT Name: DAIRAN REED Room: [address] IN M.R.#: [id number] Admission: 06/02/19 Attend Phys: Annie Astudillo Discharge: Date of : 56 Report #: [id number] electrocautery, being mindful of the perforating vessels, many of these were left intact. The patient's right side was done first. Subcutaneous flaps were raised above the fascia. Next, an electrocautery was used to incise the external oblique fascia in a longitudinal manner from her ribcage to the bottom of the incision in a longitudinal manner, this provided a release of the fascia and more mobility. Next, the same procedure was performed on the patient's left hand side, where subcutaneous flaps were raised and the external oblique fibers 1 cm lateral to the rectus sheath was incised from the rib cage to the bottom extent of the incision. At this time, the midline fascia was able to be reapproximated with very little tension. Next, a 20 x 25 cm piece of Phasix ST mesh was secured in an underlay fashion. The mesh was trimmed approximately 3 cm in length and 2 cm in width. The fascia was placed into the abdominal cavity and #1 PDS sutures were used to secure the mesh to the abdominal wall in a circumferential manner, approximately 20 sutures were used circumferentially ensuring that the mesh had good approximation to the abdominal wall and there were no areas where bowel could come in contact to the anterior portion of the mesh. Thereafter, the midline fascia was closed using 2 looped #1 PDS sutures. This was done with very little tension. The wound was irrigated. The subcutaneous flaps were hemostatic and the midline subcutaneous tissues were closed using 3-0 Vicryl. The wound was irrigated again and the skin was closed with romario and covered with a silver impregnated Mepilex dressing. Prior to the closure of the subcutaneous tissue, two 15-Sinhala LD drains were placed in the subcutaneous layer above the fascia. These were secured with two 2-0 nylon sutures respectively. This concluded the procedure. Sponge, instrument and needle counts were correct x 2. ESTIMATED BLOOD LOSS: 75 mL. COMPLICATIONS: None. DRAINS: Two 15-Sinhala LD drains above the anterior fascia. SPECIMENS: None. ANESTHESIA: General endotracheal. DISPOSITION: The patient was extubated in the operating theater and taken to the PACU in stable condition. <ELECTRONICALLY SIGNED> By: Ash Spicer DO 06/06/199 1136 1328Ash Spicer DO /nt
[2019-06-07 05:02] LABS: CREATININE 0.8 mg/dL (0.6-1.3); MAGNESIUM 1.9 mg/dL (1.8-2.4); POTASSIUM 3.3 mmol/L (3.5-5.1)
--- NOTE | 2019-06-07 05:58 | NUR ---
ASSUMED CARE FROM DAY SHIFT , PT RESTING IN BED UP TO BATHROOM GAIT STEADY , CONITNUE TO C/O ABD PAIN , ABD SOFT MIDLINE INCISION SELWYN WITH 2 LD DRAINS WITH SMALL AMOUNT OF OUTPUT. PT REQWUESTING PAIN MEDICATION SCHEDULED , BOWEL SOUNDS ACTIVE PASSING FLATUS BUT NO STOOL NOTED. PT RESTED WELL THROUGHOUT HOURLY WILL CONITINUE WITH CURRENT PLAN OF CARE AND WILL CHANGES OR ABNORMAL FINDINGS.
[2019-06-07 09:23] VITALS: BP 152/102
--- NOTE | 2019-06-07 12:30 | NUR ---
PT.ALERT AND ORIENTED. STATED SHE IS FEELING BETTER. WALKED WITH THERAPY,YESTERDAY. SHE LIVES WITH HER . HE AND CHILDREN ARE SUPPORTIVE. SHE HAS A WALKER AT HOME BUT DOESN'T NEED TO USE IT. SHE IS INDEPENDENT. FAMILY WILL HELP HER NEEDED. HOPES TO GO HOME SOON.
[2019-06-07] MEDS ORDERED: COLACE100 MG PO (15:21)
[2019-06-07] MEDS ORDERED: MAALOX ADVANCE355 M1 PO (15:22)
[2019-06-07 15:36] VITALS: BP 152/102
--- NOTE | 2019-06-07 16:45 | NUR ---
ASSUMED CARE OF PATIENT AT APPROX 0730. ALERT AND ORIENTED X4. ASSESSMENT COMPLETED AND CHARTED. VSS ON ROOM AIR. PAIN MANAGED WITH ORAL PAIN MEDICATIONS. NO OTRHER COMPLAINTS. PATIENT UP IN THE ROOM AND USING THE BATHROOM. PASSING FLATUS BUT NO BOWEL MOVEMENT REPORTED SINCE 06/02. PATIENT GIVEN DUCOLOAX SUPPOSITORY AND PRODUCED A SMALL, HARD BOWEL MOVEMENT. PATIENT AND SPOUSE EDUCATED ON HOW TO EMPTY LD DRAINS AND RECORD OUTUP TO REPORT TO SURGERY UPON FOLLOW UP. PATIENT DISCHARGED AT 1615 WITH ALL PERSONAL BELONGINGS, PRESCRIPTIONS AND DISCHARGE INFORMATION.
== END 2019-06-07 16:15 | disposition home or self-care (01) | DRG 355 ==
LOC: M.ERS 15:31 → M.ORTHSURG 23:49 → M.TBA-ER 23:49 → M.ORTHSURG 06-03 00:54
PROVIDERS: Emergency Medicine; Specialist; Surgery; ADMIT Surgery
PROC: 0WUF0JZ Supplement Abdominal Wall with Synthetic Substitute, Open Approach (ICD-10-PCS; principal; 2019-06-02)
DX: K43.2 Incisional hernia without obstruction or gangrene (principal); K43.9 Ventral hernia without obstruction or gangrene; F32.9 Major depressive disorder, single episode, unspecified; F41.9 Anxiety disorder, unspecified; F17.210 Nicotine dependence, cigarettes, uncomplicated; I10 Essential (primary) hypertension; Z53.29 Procedure and treatment not carried out because of patient's decision for other reasons; Z90.49 Acquired absence of other specified parts of digestive tract; Z79.899 Other long term (current) drug therapy; I25.2 Old myocardial infarction

== ENCOUNTER 2020-05-21 16:13 | Inpatient (IN) | payer OTHER ==
[~2020-05-21] VITALS: Ht 165.1 cm; Wt 59.0 kg
[~2020-05-21 16:13] MED LIST changes: +COLACE100 MG PO; +MAALOX ADVANCE355 M1 PO
[2020-05-21 16:31] VITALS: BP 191/104
[2020-05-21 17:05] LABS: ABSOLUTE EOSINOPHILS 0.1 thou/uL (0.0-0.7); ABSOLUTE MONOCYTES 0.4 thou/uL (0.0-1.2); ABSOLUTE NEUTROPHILS 5.7 thou/uL (1.6-8.1); BASOPHILS 0.5 %; EOSINOPHILS 0.6 %; HEMATOCRIT 44.4 % (37.0-47.0); HEMOGLOBIN 15.3 gm/dL (12.0-15.0); LYMPHOCYTES 24.6 %; MCH 33.7 pg (26.0-34.0); MCHC 34.5 g/dL (28.0-37.0); MCV 97.7 fL (80.0-100.0); MONOCYTES 4.5 %; MPV 8.1 fl. (7.2-11.1); NUCLEATED RBCS 0 /100WBC; PLATELET COUNT* 174 thou/uL (150-400); POLYS 69.8 %; RBC 4.54 mil/uL (4.20-5.00); RDW-CV 13.8 % (10.5-14.5); WBC 8.2 thou/uL (4.0-11.0)
[2020-05-21 17:16] LABS: CALCIUM 10.6 mg/dL (8.5-10.1); POTASSIUM 4.2 mmol/L (3.5-5.1)
[2020-05-21 17:21] LABS: ALBUMIN 4.1 g/dL (3.4-5.0); TOTAL BILIRUBIN 0.4 mg/dL (<0.1-1.0); TOTAL PROTEIN 7.6 g/dL (6.4-8.2)
[2020-05-21 19:01] LABS: URINE BILIRUBIN NEGATIVE (Negative); URINE BLOOD NEGATIVE (Negative); URINE CLARITY HAZY; URINE COLOR YELLOW; URINE GLUCOSE-RANDOM NEGATIVE (Negative); URINE KETONES TRACE (Negative); URINE LEUKOCYTES-REFLEX 1+ (Negative); URINE NITRITE-REFLEX POSITIVE (Negative); URINE PROTEIN NEGATIVE (Negative); URINE UROBILINOGEN 0.2 E.U./dl (0.2-1.0)
[2020-05-21 19:07] LABS: BACTERIA-REFLEX >30 Many /HPF (None Seen); CASTS None Seen /LPF (None Seen); CRYSTALS None Seen /LPF (None Seen); SQUAMOUS 4-10 Moderate /LPF (0-3); URINE RBC None Seen /HPF (0-2); URINE WBC-REFLEX 6-15 Few /HPF (0-5)
[2020-05-21 20:15] VITALS: BP 167/85
[2020-05-22 00:05] VITALS: BP 110/68
[2020-05-22 04:00] VITALS: BP 153/75
[2020-05-22 04:36] LABS: ABSOLUTE EOSINOPHILS 0.1 thou/uL (0.0-0.7); ABSOLUTE LYMPHOCYTES 2.9 thou/uL (0.8-5.3); ABSOLUTE MONOCYTES 0.4 thou/uL (0.0-1.2); ABSOLUTE NEUTROPHILS 2.3 thou/uL (1.6-8.1); BASOPHILS 0.5 %; EOSINOPHILS 1.4 %; HEMATOCRIT 37.8 % (37.0-47.0); LYMPHOCYTES 51.1 %; MCHC 34.8 g/dL (28.0-37.0); MCV 97.8 fL (80.0-100.0); MONOCYTES 6.4 %; MPV 8.4 fl. (7.2-11.1); NUCLEATED RBCS 0 /100WBC; PLATELET COUNT* 154 thou/uL (150-400); POLYS 40.6 %; RBC 3.86 mil/uL (4.20-5.00); RDW-CV 13.5 % (10.5-14.5); WBC 5.6 thou/uL (4.0-11.0)
[2020-05-22 04:41] LABS: HEMOGLOBIN 13.1 gm/dL (12.0-15.0)
[2020-05-22 04:54] LABS: CREATININE 0.9 mg/dL (0.6-1.3); MAGNESIUM 1.8 mg/dL (1.8-2.4); POTASSIUM 3.5 mmol/L (3.5-5.1)
[2020-05-22 04:56] LABS: CALCIUM 8.6 mg/dL (8.5-10.1)
[2020-05-22 08:30] VITALS: BP 150/76
--- NOTE | 2020-05-22 09:51 | EKG ---
[place] [address] ELECTROCARDIOGRAM REPORT Name: DARIAN REED Room: [address] ADM IN M.R.#: [id number] Admission: 05/21/20 Attend Phys: Zora Wilye, Discharge: Date of : 56 Date of Service: 05/21/20 1707 Report #: [id number] THIS REPORT FOR: //name// [facility] ED Test Date: 2020-05-21 Test Time: 17:07:25 Pat Name: DARIAN REED Department: Room: [facility] Gender: F Central Scheduler: ANTONIO : 1960 Requested By: Harriett Kelley Order Number: [id number] MD: Erik Al Measurements Intervals [place] Rate: 76 P: 42 NM: 140 QRS: 14 QRSD: 111 T: 46 QT: 399 QTc: 449 Interpretive Statements Sinus rhythm Borderline low voltage, extremity leads Compared to ECG 06/02/2019 16:40:13 No significant changes Electronically Signed On 05-22-2020 9:51:40 CDT by Erik Al [email or web address] <ELECTRONICALLY SIGNED> By: Erik Al MD, FACC 05/22/20 0951 1707 1707 Erik Al MD, [facility] /EPI
[2020-05-22 16:00] VITALS: BP 175/100
[2020-05-22 20:39] VITALS: BP 141/87
[2020-05-23 04:44] LABS: ABSOLUTE LYMPHOCYTES 1.6 thou/uL (0.8-5.3); ABSOLUTE MONOCYTES 0.4 thou/uL (0.0-1.2); ABSOLUTE NEUTROPHILS 3.7 thou/uL (1.6-8.1); BASOPHILS 0.4 %; EOSINOPHILS 0.6 %; HEMATOCRIT 44.8 % (37.0-47.0); MCH 33.3 pg (26.0-34.0); MCHC 34.2 g/dL (28.0-37.0); MCV 97.1 fL (80.0-100.0); MONOCYTES 6.2 %; NUCLEATED RBCS 0 /100WBC; PLATELET COUNT* 162 thou/uL (150-400); POLYS 64.8 %; RBC 4.61 mil/uL (4.20-5.00); RDW-CV 13.6 % (10.5-14.5); WBC 5.7 thou/uL (4.0-11.0)
[2020-05-23 04:54] LABS: CALCIUM 9.1 mg/dL (8.5-10.1); CREATININE 0.9 mg/dL (0.6-1.3); HEMOGLOBIN 15.3 gm/dL (12.0-15.0); POTASSIUM 3.4 mmol/L (3.5-5.1)
[2020-05-23 07:25] VITALS: BP 162/89
[2020-05-23 09:07] VITALS: BP 162/89
[2020-05-24] MEDS ORDERED: CEFUROXIME500 MG PO (10:17)
== END 2020-05-23 10:52 | disposition home or self-care (01) | DRG 390 ==
LOC: M.ERS 16:13 → M.ORTHSURG 19:17 → M.TBA-ER 19:17 → M.ORTHSURG 20:21
PROVIDERS: Internal Medicine; Nurse Practitioner Family; Surgery; ADMIT Internal Medicine; ATTEND Internal Medicine
DX: K56.609 Unspecified intestinal obstruction, unspecified as to partial versus complete obstruction (principal); F32.9 Major depressive disorder, single episode, unspecified; F41.9 Anxiety disorder, unspecified; F17.210 Nicotine dependence, cigarettes, uncomplicated; K59.00 Constipation, unspecified; F12.90 Cannabis use, unspecified, uncomplicated; G89.29 Other chronic pain; M54.9 Dorsalgia, unspecified; Z20.828 Contact with and (suspected) exposure to other viral communicable diseases; Z79.899 Other long term (current) drug therapy